=== PATIENT | male | born 1960 | race Caucasian/White ===

== ENCOUNTER → 2024-08-27 08:44 | Outpatient (REF) | payer OTHER, SELFPAY | LOC: HWRAD 08:44 | PROVIDERS: ATTENDING PHYSICIAN Thoracic Surgery (Cardiothoracic Vascular Surgery); FAMILY PHYSICIAN Internal Medicine; REFERRING PHYSICIAN Internal Medicine Cardiovascular Disease | DX: I25.10 Atherosclerotic heart disease of native coronary artery without angina pectoris (principal); Z01.810 Encounter for preprocedural cardiovascular examination | CPT/HCPCS: 71250 ==

== ENCOUNTER 2024-08-28 07:55 | Inpatient (IN) | payer OTHER, SELFPAY ==
[2024-08-23 08:41] VITALS: BMI 35.6
[2024-08-23 09:12] LABS: Urine Albumin 3+ (Neg - Trace); Urine Bilirubin Negative (Negative); Urine Character Clear (Clear); Urine Color Yellow; Urine Glucose 4+ (Negative); Urine Ketone 1+ (Negative); Urine Leukocyte Negative (Negative); Urine Nitrite Negative (Negative); Urine Occult Blood 1+ (Negative); Urine Urobilinogen Negative (Neg - 1+)
[2024-08-23 09:16] LABS: % Basophils 0.6 % (0-2); % Eosinophils 2.3 % (0-6); % Immature Granulocytes 0.4 % (0-0.5); % Lymphocytes 30.2 % (20.5-51.1); % Monocytes 9.7 % (1.7-9.3); % Neutrophils 56.8 % (42.2-75.2); Absolute Basophils 0.1 10^3/uL (0-0.2); Absolute Eosinophils 0.2 10^3/uL (0-0.7); Absolute Lymphocytes 2.5 10^3/uL (1.2-3.4); Absolute Monocytes 0.8 10^3/uL (0.1-0.6); Absolute Neutrophils 4.6 10^3/uL (1.4-6.5); Hematocrit 45.1 % (39.0-52.0); Hemoglobin 15.1 g/dL (13.0-18.0); Mean Corp Hgb Conc. 33.5 g/dL (33.0-37.0); Mean Corpuscular Hgb 27.4 pg (27.0-31.0); Mean Corpuscular Volume 81.9 fL (80.0-94.0); Nucleated Red Blood Cells % 0 % (-); Platelet Count 239 10^3/uL (130-400); Red Blood Cell Count 5.51 10^6/uL (4.70-6.10); Red Cell Dist. Width 13.2 % (11.5-14.5); White Blood Cell Count 8.2 10^3/uL (4.8-10.8)
[2024-08-23 09:22] LABS: PT 12.5 Sec (11.4-14.6)
[2024-08-23 09:23] LABS: APTT 26.3 Sec (23.4-35.0)
[2024-08-23 09:54] LABS: ALT (SGPT) 116 U/L (0-50); AST (SGOT) 51 U/L (17-59); Albumin 4.2 g/dl (3.5-5.0); Alkaline Phosphatase 94 U/L (38-126); Blood Urea Nitrogen 18 mg/dl (9-20); Calcium 9.7 mg/dl (8.4-10.2); Carbon Dioxide 29 mmol/L (22-30); Chloride 98 mmol/L (98-107); Direct Bilirubin 0.2 mg/dl (0.0-0.4); Estimated Creatinine Clearance > 125 ml/min; Glucose 292 mg/dl (70-99); Potassium 4.3 mmol/L (3.5-5.1); Sodium 137 mmol/L (135-145); Total Bilirubin 0.9 mg/dl (0.2-1.3); Total Protein 7.8 g/dl (6.3-8.2); eGFR > 60.00
[2024-08-23 10:09] LABS: Glycohemoglobin (HgbA1c) 9.4 % (4.0-5.6)
--- NOTE | 2024-08-23 10:13 | CM ---
Chart reviewed. Met with the patient in PAT. Reviewed preoperative and postoperative instructions and restrictions, along with showering guidelines. Gave patient 2 soaps. Patient is independent of ADLS, lives with his in a 2 STH, 1 ANTHONY, 0
DME. Patient's works from home. Patient works as a medical/surgery registered nurse. Patient is agreeable to a home visit by CT Transitional RN. Plan is for the patient to return home with CT Transitional RN.
[2024-08-23 12:07] LABS: Urine Mucus Many
[2024-08-23 12:08] LABS: Urine Amorphous Seen
[2024-08-23 12:09] LABS: Urine Red Blood Cell 0-2 /HPF (0-2); Urine White Cell 0-2 /HPF (0-5)
[2024-08-28] VITALS (7 sets, daily range): BP systolic 98–140; BP diastolic 67–95; BMI 34.9
--- NOTE | 2024-08-28 08:00 | PTCARENOTE ---
Patient admitted to CVICU @ 0800. Confirmed 2x CHG shower and NPO since midnight. Vital signs obtained. Clipped and CHG cloth bath performed. Labs drawn. Admission questions asked and home medications reviewed.
--- NOTE | 2024-08-28 11:30 | CM ---
Chart reviewed. Patient is in the OR today. Patient is independent of ADLS, lives with his in a 2 STH, 1 ANTHONY, 0 DME. Plan is for the patient to return home with CT Transitional RN. CM to follow
[2024-08-28] MEDS: MAGNESIUM OXIDE 500 MG PO (11:35)
[2024-08-28] MEDS: LOPRESSOR 25 MG PO (11:35)
[2024-08-28] MEDS: PROTONIX 40 MG PO (11:35)
[2024-08-28] MEDS: BACTROBAN 2% OINTMENT 1 APPLIC NASAL ×2 (11:35→20:41)
--- NOTE | 2024-08-28 12:30 | W.CVOR.SURPR ---
CVOR Surgeon Immed Pre Op
-
I have examined this patient prior to performance of the scheduled procedure.
The patient's condition is unchanged from the time of the dictated/written History and
Physical and the patient is able to undergo the scheduled procedure.
CABG + EHSAN Clip
--- NOTE | 2024-08-28 12:41 | PTCARENOTE ---
Patient taken to CVOR.
--- NOTE | 2024-08-28 12:50 | PN.DE.MGMTRT ---
Insulin Management
- -
08/28/2024 Diabetes Management Consult
Patient admitted today for CABG + EHSAN clip. PMH diabetes, obesity, borderline essential HTN, HLD, colon CA, suspect ASHLY. Prior to admission was taking metformin 1000 mg BID. A1C on admission 9.4, cr .6, eGFR > 60.
Patient is in the OR this AM for procedure.
Patient to start glycemic protocol insulin infusion post operatively. Will follow tomorrow.
Diabetes History
- -
Type of Diabetes: 2
Pre-Admission Diabetes Regimen
Lab Results
Hemoglobin A1c 9.4 % (4.0-5.6) H 08/23/24 08:52
Insulin Pump Settings
IP Diabetes Regimen
Patient Education
[2024-08-28 13:22] LABS: Urine Albumin 2+ (Neg - Trace); Urine Bilirubin Negative (Negative); Urine Character Slightly Cloudy (Clear); Urine Color Yellow; Urine Glucose 3+ (Negative); Urine Ketone 1+ (Negative); Urine Leukocyte Negative (Negative); Urine Nitrite Negative (Negative); Urine Occult Blood 1+ (Negative); Urine Urobilinogen 1+ (Neg - 1+)
[2024-08-28 13:29] LABS: ACT+ - POC 93 Seconds (82-134)
[2024-08-28 14:18] LABS: Urine Bacteria Few (Negative); Urine Squamous Cell >30 /LPF (Few)
[2024-08-28 14:19] LABS: Urine Mucus Few; Urine Red Blood Cell 0-2 /HPF (0-2); Urine Sperm Seen
[2024-08-28 15:12] LABS: ACT+ - POC 460 Seconds (82-134)
[2024-08-28 15:19] LABS: B.E. - POC 0.5 mmol/L; Glucose - POC 256 mg/dl (70-99); HCO3 - POC 25 mmol/L (21-28); Hematocrit - POC 42 % PCV (42-52); Hemodilution- POC No; Hemoglobin Calculated - POC 14.4; Ionized Calcium - POC 1.18 mmol/L (1.15-1.33); Lactate - POC 1.37 mmol/L (0.36-0.75); O2 Saturation %Calculated-POC 99.6 % (94-98); PCO2 - POC 41 mmHg (35-48); PO2 - POC 175 mmHg (83-108); Potassium - POC 3.8 mmol/L (3.5-5.1); Sodium - POC 141 mmol/L (136-145); Specimen Type - POC Arterial
[2024-08-28 15:46] LABS: ACT+ - POC 495 Seconds (82-134)
[2024-08-28 16:13] LABS: B.E. - POC 2.5 mmol/L; Glucose - POC 267 mg/dl (70-99); HCO3 - POC 28 mmol/L (21-28); Hematocrit - POC 34 % PCV (42-52); Hemodilution- POC Yes; Hemoglobin Calculated - POC 11.7; Ionized Calcium - POC 0.99 mmol/L (1.15-1.33); Lactate - POC 1.55 mmol/L (0.36-0.75); O2 Saturation %Calculated-POC 99.7 % (94-98); PCO2 - POC 47 mmHg (35-48); PO2 - POC 200 mmHg (83-108); Potassium - POC 5.6 mmol/L (3.5-5.1); Sodium - POC 137 mmol/L (136-145); Specimen Type - POC Arterial; pH - POC 7.38 (7.35-7.45)
[2024-08-28 16:23] LABS: B.E. - POC -0.5 mmol/L; Glucose - POC 257 mg/dl (70-99); HCO3 - POC 25 mmol/L (21-28); Hematocrit - POC 33 % PCV (42-52); Hemodilution- POC Yes; Hemoglobin Calculated - POC 11.4; Ionized Calcium - POC 1.05 mmol/L (1.15-1.33); Lactate - POC 2.28 mmol/L (0.36-0.75); O2 Saturation %Calculated-POC 97.6 % (94-98); PCO2 - POC 42 mmHg (35-48); PO2 - POC 100 mmHg (83-108); Potassium - POC 4.5 mmol/L (3.5-5.1); Sodium - POC 140 mmol/L (136-145); Specimen Type - POC Arterial; pH - POC 7.38 (7.35-7.45)
[2024-08-28 16:24] LABS: ACT+ - POC 523 Seconds (82-134)
[2024-08-28 16:44] LABS: B.E. - POC 0.5 mmol/L; Glucose - POC 247 mg/dl (70-99); HCO3 - POC 26 mmol/L (21-28); Hematocrit - POC 34 % PCV (42-52); Hemodilution- POC Yes; Hemoglobin Calculated - POC 11.4; Ionized Calcium - POC 1.04 mmol/L (1.15-1.33); Lactate - POC 2.36 mmol/L (0.36-0.75); O2 Saturation %Calculated-POC 97.3 % (94-98); PCO2 - POC 43 mmHg (35-48); PO2 - POC 96 mmHg (83-108); Potassium - POC 4.5 mmol/L (3.5-5.1); Sodium - POC 139 mmol/L (136-145); Specimen Type - POC Arterial; pH - POC 7.38 (7.35-7.45)
[2024-08-28 16:47] LABS: ACT+ - POC 104 Seconds (82-134)
--- NOTE | 2024-08-28 17:14 | W.PN.CT.SURG ---
CT Surgery Operative Note
-
CARDIAC SURGERY OPERATIVE REPORT
Preoperative Diagnosis: Multivessel Coronary Artery Disease with exertional angina
Postoperative Diagnosis: Same
Procedure(s) Performed:
1. Standard sternotomy with aortic and right atrial cannulation
2. Internal mammary artery harvesting
3. Endoscopic left radial and open right lower extremity vein harvest
4. Multi arterial coronary artery bypass grafting x 3 (In situ FAYE to LAD, Ao to left radial to OM, Ao to RSVG to RPDA)
5. Placement of temporary ventricular pacing wire
6. Transesophageal echocardiography
Date of Surgery: 08/28/2024
Comorbidities:
1. Multivessel coronary disease with exertional angina
2. Morbidly obese with a BMI of greater than 30
3. ASHLY on CPAP
4. Hyperlipidemia
5. Njc-plqzshs-exwgfhtcd diabetes mellitus
6. Hypertension
7. History of colon cancer status post colectomy in 2020
Attending Surgeon: Clyde Espinosa MD, MS
Assistants: Clyde Issa PA-C (present and necessary to registered nurse first assistant, retraction, suction, exposure, suture management, and wound closure under my direction), Aurea Hawkins PA-C (endo radial artery harvest), Ricky Jackson MD (Cardiac Surgery Boatswain Mate)
Anesthesiology: Tenzin Willams MD and Renetta Castillo CRNA
Scrub and Circulating RNs: Reyes Lucas RN, Martine Elliott RN
Associate Professor Of Literacy: Nilay Tyler CCP
Anesthesia: GETA
EBL: per perfusion records
Products: None
CPB Time: 79 minutes
Aortic Cross Clamp Time: 67 minutes
Indication(s) for Procedures: This is a 63-year-old male with multiple comorbidities including exertional angina. He underwent left heart cath which found multivessel coronary artery disease. Given his diabetic status, he was offered surgical
revascularization with multi arterial grafting given his young age and disease pattern. The STS risk was reviewed the patient, he accepted the risks and so shared decision making was move forward with operative intervention.
Conduit(s) Quality:
FAYE -excellent/taken as a pedicle graft
RSVG -good/large sized and somewhat thickened but overall uniform with minimal varicosities
Target(s) Quality:
RCA/PDA -average/diffusely calcified throughout the entire RCA, test dose of antegrade yielded excellent flow and flow probe assessment with a mean flow of 20 cc a minute with a pulsatility index of 3.3
OM -good/again, diffusely diseased but large sized target, test dosing of antegrade yielded a flow of approximately 50 cc a minute at a pressure of 80 mmHg, flow probe assessment with a mean flow of 28 mm/min with a pulsatile index of 3.4
LAD -good/mean flow of 14 cc a minute with a pulsatile index of 3.7, good visual flow in the LAD territory with removal of the bulldog clamp
Findings: Left ventricular ejection fraction preoperatively was 60% with no significant regional wall motion abnormalities. There was trace to mild mitral valve insufficiency. Following surgery his EF remained the same at 60% with no new regional
wall motion abnormalities. Initially with clamp off, he had moderate mitral valve insufficiency that was functional then improved to trace/baseline after period of perfusion and recovery. The FAYE was harvested in a pedicle fashion. Following
bypass grafting, test dose cardioplegia was given down each distal and confirmed patency and hemostasis. Flow probe assessment yielded acceptable flows in all grafts with low pulsatility indices. The mid LAD was diffusely diseased all way down
towards the apex, there was eccentric plaque but were able to identify a lumen with good visual flow in the LAD territory. He did not require any blood products, he was in sinus rhythm and did not require any pacing.
Description of Procedure: The patient was taken to the operating room. Their identity and procedure to be performed were verified and they were positioned supine on the operating table. Induction via general anesthesia with endotracheal intubation
was performed and central venous access and arterial monitoring were inserted. A preoperative transesophageal echocardiogram was performed to assess cardiac function and valvular function. The patient was then prepped and draped from chin to feet in
a sterile fashion. A preoperative time-out was performed with all members of the team present. A midline chest incision was performed along with median sternotomy. Simultaneous endoscopic access of the left radial artery and open lower extremity for
saphenous vein harvest was obtained along with administration of an initial 5,000 units of IV heparin. A RulTract sternal retractor was positioned to exposure the left internal mammary bed. The mammary was harvested and found to have good flow. A
bulldog clamp was applied to the distal end of the mammary after dividing it. It was wrapped in a papaverine soaked RayTec and replaced back into the left hemithorax. The RulTract was exchanged for a median sternal retractor. The innominate vein was
isolated. Full heparinization was given (a total of 60,000 units). We created a pericardial well. The aortic cannulation site was chosen where it was soft, pliable, and free of calcium. Cannulation was performed with an arterial cannula in the
ascending aorta and a triple-stage venous cannula through the right atrial appendage. The arterial cannula line had an appropriate bounce and correlating pressures with test dosing. Next, a root vent/antegrade cannula was inserted into the ascending
aorta. The ACT was confirmed to be over 400 and retrograde autologous priming was performed before commencing cardiopulmonary bypass. The pulmonary artery was away from the aorta to facilitate a clamp site. The aortic cross-clamp was
placed after decreasing the flow on the bypass and mean arterial pressure. A total of 1.2L initial dose of antegrade Del-Nido cardioplegia solution was given and planned for re-dosing every 75 minutes as necessary. There was rapid electro-mechanical
arrest of the heart at 300 cc of cardioplegia. Additional cardioplegia (total of 500cc more) was given as there appeared to be activity on the EKG however this was found to be erroneous later and likely artifact. The left ventricle was observed for
distention on echocardiogram and manual palpation. Cold slush was placed into a sponge and topically on the RV while we systemically cooled to 32 degrees centigrade.
I positioned the heart to expose the distal right coronary at the posterior descending artery. A [place] blade was used to expose the coronary and perform the arteriotomy. Coronary Grossman scissors were used to enlarge the incision. The saphenous vein
was trimmed and beveled to an appropriate size. The distal anastomosis was performed using 7-0 prolene in an end-to-side fashion. Antegrade cardioplegia was administered into the graft. Appropriate hemostasis and flow were confirmed. The graft was
measured for length to the aorta and cut. A suitable site on the obtuse marginal was chosen. We dissected and prepared the distal target in a similar fashion. An end-to-side anastomosis was created with a 7-0 prolene. Antegrade cardioplegia was
administered into the graft with the aid of an Angiocath. Appropriate hemostasis and flow were confirmed. The graft was measured for length to the aorta and cut. A suitable target on the mid/distal left anterior descending was identified. I
dissected proximally and distally over the LAD itself was diffusely calcified however I was able to find a suitable spot with eccentric plaque. We dissected and prepared the distal target in a similar fashion. We retrieved the FAYE from the chest
and created a pericardial opening while being cognizant of the phrenic nerve to facilitate the course of the mammary. The distal end of the mammary was prepped and beveled to size. We verified orientation and length of the NOMAN and found brisk flow.
An end-to-side anastomosis was created with a 8-0 prolene and secured with a micro core knot. We temporarily released the bulldog clamp on the mammary to inspect flow. Perfusion to the LAD territory was visualized and hemostasis was confirmed. The
bull clamp was replaced on the mammary. The heart was filled and the root was distended with antegrade cardioplegia to make final assessment of graft length and orientation. We created 2 aortotomies using a #11 blade then a 4.0mm aortic punch. The
proximal anastomoses were created in an end-to-side fashion using 6-0 prolene for the vein graft and 7-0 Prolene for the radial. At the the same time, we re-warmed to 36.5 degrees centigrade. The bulldog clamp was removed from the mammary. Temporary
bipolar ventricular pacing wires were placed on the base of the right ventricle. The patient was placed in a Trendelenburg position and flows on bypass were lowered. The aortic cross clamp was removed and flows were slowly brought back up. All
bypass grafts were inspected and were free from kinking or twisting. The distal and proximal anastomoses appeared hemostatic. Once transesophageal echocardiography appeared satisfactory for de-airing, the flows were temporarily lowered for root
vent removal. After verifying acceptable parameters, we initiated weaning from cardiopulmonary bypass. Once we were off cardiopulmonary bypass, the venous cannula was clamped and removed. A test dose of protamine was administered and the patient was
monitored for any adverse reaction before resuming protamine. Once half of the protamine dose was delivered, pump suckers were turned off and the systolic blood pressure was lowered for aortic decannulation. The aortic cannula was removed and
pursestrings were tied down. All cannulation sites were oversewn with a 4-0 prolene. The mammary bed was inspected and hemostasis was confirmed. Once the mediastinum was hemostatic, 19Fr Tim drain was placed in the left pleural cavity and two 24Fr
Tim drains were placed within the pericardium. The sternum was approximated with 4 #7 single and 3 #8 double stainless steel wires. Fascia was approximated with #1 vicryl suture. The subcutaneous, dermis and epidermis were closed in layers in a
running fashion. The skin wound was cleansed and dressed.
All instrument, sponge, and needle counts were confirmed to be correct x 2 at the end of the operation. The patient was transferred to the cardiac intensive care unit in critical but stable condition.
I, Dr. Clyde Espinosa, was present, scrubbed for, and performed all critical elements of this procedure.
Clyde Espinosa MD, MS
Cardiothoracic Surgeon
[facility]
This operative dictation was created using the Marginize dictation system. Please excuse any grammatical, typographical, or 'sound alike' errors
[2024-08-28 17:26] LABS: B.E. - POC -0.2 mmol/L; Glucose - POC 228 mg/dl (70-99); HCO3 - POC 26 mmol/L (21-28); Hematocrit - POC 32 % PCV (42-52); Hemodilution- POC Yes; Hemoglobin Calculated - POC 10.9; Ionized Calcium - POC 1.26 mmol/L (1.15-1.33); Lactate - POC 2.82 mmol/L (0.36-0.75); O2 Saturation %Calculated-POC 98.8 % (94-98); PCO2 - POC 46 mmHg (35-48); PO2 - POC 131 mmHg (83-108); Potassium - POC 3.8 mmol/L (3.5-5.1); Sodium - POC 142 mmol/L (136-145); Specimen Type - POC Arterial; pH - POC 7.35 (7.35-7.45)
--- NOTE | 2024-08-28 17:30 | PTCARENOTE ---
Pt received from CVOR at 1730. Pt intubated and sedated on precedex gtt. Unresponsive, RAAS -5. PERRLA 3mm brisk. POX 93% SIMV 100% 14 500 5/5, not breathing over the vent. Intubated with 8.0 ETT, 22cm at the lip. Lungs clear anteriorly. NSR with
RBBB on tele with rates in the 70s. BP supported with levophed gtt. Pt received with Nitro infusing, discontinued. +Rub. Right radial, left ulnar pulses palpable. Bilateral DP pulses palpable. No edema noted. CVP 11. Cardizem infusing at 2.5mg/hr
for radial graft. Epicardial v-wire tested by Dr. Espinosa at bedside, with appropriate pacing. Set to 70/10/0.8, wire unplugged from box as per Dr. Espinosa. Mediastinal chest tubes x2 to -20cm suction draining red fluid. Left pleural chest tube to -20cm
suction draining red fluid. No air leaks, tidaling, crepitus noted. Abdomen soft, round, obese. Hypoactive BS. Pham catheter intact draining adequate amounts of clear yellow urine. Right IJ cordis with slick in place. Right forearm 18g PIV intact.
Sternal incision approximated with skin glue, HEADING MACHINE OPERATOR. Left radial harvest/wrist incision covered with JUNAID-CDI. Right leg SVG harvest incisions covered with JUNAID-CDI. See MAR for medication administration. See worklist for complete nursing assessment.
Post op EKG, CXR, and labs completed.
[2024-08-28 17:43] LABS: Glucose - Point of Care 210 mg/dl (70-99)
[2024-08-28 17:46] LABS: B.E. - POC -1.9 mmol/L; Blood Urea Nitrogen - POC 18 mg/dl (3-120); Chloride - POC 101 mmol/L (96-111); Creatinine - POC 0.65 mg/dl (0.3-1.0); Glucose - POC 224 mg/dl (70-99); HCO3 - POC 26 mmol/L (21-28); Hematocrit - POC 34 % PCV (42-52); Hemodilution- POC No; Hemoglobin Calculated - POC 11.6; Ionized Calcium - POC 1.18 mmol/L (1.15-1.33); Lactate - POC 2.94 mmol/L (0.36-0.75); O2 Saturation %Calculated-POC 92.2 % (94-98); PCO2 - POC 56 mmHg (35-48); PO2 - POC 74 mmHg (83-108); Potassium - POC 3.7 mmol/L (3.5-5.1); Sodium - POC 142 mmol/L (136-145); Specimen Type - POC Arterial; pH - POC 7.27 (7.35-7.45)
--- NOTE | 2024-08-28 17:50 | CON.INTV ---
Consultation
Consultation Request
Date/Time Consultation Requested: 08/28/2024 - 170
Date/Time Consultation Performed: 08/28/2024 - 1727
Requesting Provider: CHIRAG Hale
Performing Provider: Dr. Lang
Reason for Consultation: s/p CABG
Medical History
-
Chief Complaint: Elective CABG
History of Present Illness:
63-year-old male non-smoker with a past medical history of DM type II, hypertension, hyperlipidemia, history of colon cancer s/p partial colectomy and multivessel CAD. Patient underwent a left heart catheterization on 08/15/2024 showing subtotal mid
RCA lesion with mild as moderate diffuse disease of the RCA, severe proximal circumflex disease, concomitant ostial OM 2 disease and showed moderate�severe proximal to mid LAD disease. Stress test on 08/02/2024 was positive for ischemia. He
endorsed shortness of breath and central chest tightness. Patient saw Dr. Espinosa on 08/21/2024 and reviewed the risks and benefits of a surgical revascularization procedure. Patient consented to this procedure and today he underwent a CABG x 3. There
were no complications and he was transferred to the CVICU postoperatively and Rigging Supervisor services consulted for additional management/recommendations.
When I saw the patient he was resting in bed, still intubated on SIMV at 18/500/100%/8, with PSV: 5, with PIP: 28 cmH2O, VTe 485 cc and breathing at 18 breaths/min. Heart rate 75, SpO2: 94%, and BP via A-line: 104/59. Currently on insulin drip at
2 units/hr, nitroglycerin gtt at 5 mcg/min, Precedex at 0.5 mcg/kg/hr, Cardizem at 2.5 mg/hr, and Levophed at 6 mcg/min.
PMHx: DM type II, history of enlarged RV, hypertension, hyperlipidemia, history of colon cancer, ASHLY on CPAP
PSHx: Partial colectomy for colon cancer (2020)
Past Medical History
Past Medical History: Other (Above as per HPI)
Past Surgical History: Other (Above as per HPI)
Social History
Tobacco: Non-smoker
Alcohol: Occasional
Drug: None
Personal: Partner
Employment: Employed (Medical and legal hunter trapper)
Family History
Family History: CAD (Father) and Hypertension (Mother)
Allergies / Home Medications
Allergies
Allergy/AdvReac Type Severity Reaction Status Date / Time
No Known Allergies Allergy Verified 08/22/24 10:25
Home Medications
�Medication �Instructions �Recorded �Confirmed �Last Taken �Type
aspirin 81 mg tablet,delayed 81 mg PO DAILY Blood Clot 08/22/24 08/28/24 08/19/24 21:00 History
release Prevention/Tx
atorvastatin 40 mg tablet 40 mg PO DAILY High Cholesterol 08/22/24 08/28/24 08/27/24 09:00 History
metformin 1,000 mg tablet 1,000 mg PO BID Diabetes 08/22/24 08/28/24 08/27/24 09:00 History
metoprolol succinate 50 mg 50 mg PO DAILY Heart 08/22/24 08/28/24 08/27/24 09:00 History
tablet,extended release 24 hr Disease/Condition
Review of Systems
-
Unable to Obtain full review of systems at this time due to: Patient Intubation
Vitals / Labs / Diagnostic Testing
Vital Signs
Temp Pulse Resp BP Pulse Ox
98.4 F 76 6 114/77 97
08/28/24 20:00 08/28/24 20:05 08/28/24 20:05 08/28/24 20:00 08/28/24 20:05
Lab Data
08/28/24 17:40
Laboratory Results
08/28/24 08/28/24
17:40 18:35
PT 16.6 H
INR 1.29
APTT 29.1
pH 7.29 L 7.35
pCO2 52 H 44
pO2 79 L 153 H
HCO3 25.0 24.3
O2 Delivery Level
Diagnostic Testing:
Physical Exam
-
HEENT: Normocephalic, Anicteric and Other (ETT in place)
Cardiovascular: S1/S2, Rub (present) and Peripheral Edema (negative)
Respiratory: Clear, Wheeze (negative), Rales (negative), Rhonchi (negative), Non-Labored Respirations, Other (Mechanical breath sounds heard bilaterally) and Other (Chest tubes: Left pleural chest tube x 1 + mediastinal chest tubes x 2)
GI: Soft, Non Distended, Non Tender and Normal Bowel Sounds
Neurology: Tremors (negative) and Other (Sedated)
Skin: Warm and Dry
General: Respiratory Distress (negative), Comfortable, Fever (negative) and Chills (negative)
Assessment
-
Assessment: 63-year-old male non-smoker with a past medical history of DM type II, hypertension, hyperlipidemia, history of colon cancer s/p partial colectomy and multivessel CAD. Patient underwent a left heart catheterization on 08/15/2024 showing
subtotal mid RCA lesion with mild as moderate diffuse disease of the RCA, severe proximal circumflex disease, concomitant ostial OM 2 disease and showed moderate�severe proximal to mid LAD disease. Stress test on 08/02/2024 was positive for
ischemia. He endorsed shortness of breath and central chest tightness. Patient saw Dr. Espinosa on 08/21/2024 and reviewed the risks and benefits of a surgical revascularization procedure. Patient consented to this procedure and on 08/28/2024 he
underwent a CABG x 3. There were no complications and he was transferred to the CVICU postoperatively and Rigging Supervisor services consulted for additional management/recommendations.
Chronic conditions NOTE TELLER: DM type II, history of enlarged RV, hypertension, hyperlipidemia, history of colon cancer, ASHLY on CPAP
Impression:
#Multivessel CAD with exertional angina s/p CABG x 3 (POD #0)
#Acute anemia due to above
#Hyponatremia (mild)
#DM type II complicated by hyperglycemia
#Hypocalcemia
#ASHLY on CPAP
#Hyperlipidemia
#Morbid obesity
#Hypertension
#History of colon cancer s/p partial colectomy (2020)
Plan:
Ventilator settings reviewed
FiO2 will be weaned to maintain SpO2 >90-94%
Minute ventilation will be adjusted
Arterial blood gases will be monitored
Spontaneous breathing trial will be attempted with hopeful extubation after anesthesia/sedation wear off
prn nebulized bronchodilators - not currently bronchospastic
Pulmonary artery catheter parameters will be followed
Pressors/antihypertensive/inotropes/diuretics will be provided as needed
Maintain MAP>65
Replete electrolytes with K>4, Mg>2
Monitor chest tube output (left pleural chest tube X 1 + mediastinal chest tubes x 2)
Monitor hemoglobin
Monitor platelet count and coags
Transfuse blood products as needed to maintain Hb>7g/dL, plt>50k (given post-operative status)
CT surgery managing chest tubes
Monitor blood sugar to maintain euglycemia with goal BG 140-180
Insulin drip per protocol
Aspiration precautions
VAP prevention protocol
DVT prophylaxis
Early nutrition
Early mobilization
Critical care statement: A total of 37 minutes of critical care time was provided for this patient today. This includes management of ventilator, spontaneous breathing trial, arterial blood gases, pressors, of unstable vital signs, evaluation of the
patient at bedside, reviewing the patient's pertinent medical records including radiographs, microbiology, laboratory evaluations, and discussion with primary team and critical care nursing.
[2024-08-28 17:55] LABS: Hematocrit 34.3 % (39.0-52.0); Hemoglobin 11.5 g/dL (13.0-18.0); Platelet Count 191 10^3/uL (130-400)
[2024-08-28 17:57] LABS: B.E. -2.1 mmol/L; Ionized Calcium 1.18 mMOL/L (1.15-1.33); O2 Saturation % 96.5 % (94-98); PCO2 52 mmHg (35-48); PO2 79 mmHg (83-108); Potassium 3.9 mMOL/L (3.5-5.1); Sodium 135 mMOL/L (136-145); pH 7.29 (7.35-7.45)
--- NOTE | 2024-08-28 18:00 | PTCARENOTE ---
Post-op ABG resulted, Dr. Espinosa at bedside to change vent settings SIMV 100% 18 500 03/23. Repeat ABG scheduled for 1829. POX 96%.
[2024-08-28 18:01] LABS: Blood Urea Nitrogen 18 mg/dl (9-20); Estimated Creatinine Clearance > 125 ml/min; Glucose 218 mg/dl (70-99); Magnesium 2.9 mg/dl (1.6-2.3)
[2024-08-28 18:03] LABS: INR 1.29; PT 16.6 Sec (11.4-14.6)
[2024-08-28 18:04] LABS: APTT 29.1 Sec (23.4-35.0)
[2024-08-28] MEDS: KCL 50 IV ×2 (18:09→19:20)
[2024-08-28] MEDS: ANCEF 10 IV ×2 (18:10)
[2024-08-28] MEDS: CARDIZEM 125 IV (18:11)
[2024-08-28] MEDS: NOVOLOG FLEXPEN SC (18:12)
[2024-08-28] MEDS: NEURONTIN PO ×2 (18:12→22:33)
[2024-08-28] MEDS: PACERONE PO ×2 (18:13→22:33)
[2024-08-28] MEDS: TYLENOL PO ×2 (18:13→22:33)
[2024-08-28] MEDS: NSS 500 IV (18:13)
--- NOTE | 2024-08-28 18:13 | W.PN.UPDATE ---
Addendum entered and electronically signed by CHIRAG Hale 09/04/24 16:08:
CDI QUERY RESPONSE :
AB.29/52/79/25/-2.1/96% c/w acute post op resp acidosis
Original Note:
Update Note
Progress Note Update
63-year-old male was electively admitted on 08/28/2024 for CABG
IV fluids: 2300
U.O.:� 325
Blood:� none
Wires:� v-wires
Drips: Cardene @ 5, levo @ 4, Insulin @ 2
Sedatives:� Precedex
�
NEURO: sedated, pupils +2mm B/L
RESP: #8OT @24cm> 500/100%/14/5. Lungs clear B/L. 2 mediastinal (10cc on arrival) and L pleural (10cc on arrival) chest tubes to -20cm suction. Sanguineous drainage, no airleak, no crepitus
CV: RRR +S1, S2, no S3, no�rub, no murmur. Dermabond to median sternotomy. RIJ w/slik
ABD: large, round, soft, no BS
EXT: no edema, +2/4 DP pulses B/L, no femoral bruit, RLE JUNAID wrap intact; left radial A-line intact
: Pham with clear yellow urine
�
A/P: POD #0 s/p CABG x 3 (FAYE to LAD, left radial to OM, RSVG to RPDA)
ARISTIDES: EF�65-70%
- wean and extubate
- keep SBP 90-130mmHg
# CAD
- will require ASA, Plavix, statin, beta-janette and Norvasc x 3 months for radial patency
# Acute postop respiratory acidosis on 100% FiO2
-PEEP increased to 10, RR increased to 18
-ET tube in adequate position on chest x-ray review
-Repeat ABG at 1830
�
# acute surgical blood loss anemia-expected
- trend CBC
�
# T2DM (A1C 9.4)
- insulin infusion x 48h
- on MFM 100mg BID @ home>diabetes INSPECTOR CAN[employer]ED FOOD RECONDITIONING consulted for recommendations to improve glycemic control
�
# Hx colon C/A s/p partial colectomy 2020
- slow advance of diet to prevent ileus
# Class I obesity (BMI 34)
-Carb controlled diabetic diet
-Lifestyle modification with increased exercise
--- NOTE | 2024-08-28 18:43 | W.PN.UPDATE ---
Update Note
Progress Note Update
EPOC ABG (PEEP 10/FiO2 100%):
7.34/42.8/122.1/23.2/-2.5/98.5%
[2024-08-28 18:46] LABS: B.E. - POC -2.5 mmol/L; Blood Urea Nitrogen - POC 17 mg/dl (3-120); Chloride - POC 104 mmol/L (96-111); Creatinine - POC 0.61 mg/dl (0.3-1.0); Glucose - POC 287 mg/dl (70-99); HCO3 - POC 23 mmol/L (21-28); Hematocrit - POC 36 % PCV (42-52); Hemodilution- POC No; Hemoglobin Calculated - POC 12.4; Ionized Calcium - POC 1.08 mmol/L (1.15-1.33); Lactate - POC 1.98 mmol/L (0.36-0.75); O2 Saturation %Calculated-POC 98.5 % (94-98); PCO2 - POC 43 mmHg (35-48); PO2 - POC 122 mmHg (83-108); Potassium - POC 4.1 mmol/L (3.5-5.1); Sodium - POC 140 mmol/L (136-145); Specimen Type - POC Arterial; pH - POC 7.34 (7.35-7.45)
[2024-08-28 18:56] LABS: B.E. -1.5 mmol/L; HCO3 24.3 mmol/L (21-28); O2 Saturation % 99.3 % (94-98); PCO2 44 mmHg (35-48); PO2 153 mmHg (83-108); pH 7.35 (7.35-7.45)
--- NOTE | 2024-08-28 19:00 | PTCARENOTE ---
Repeat ABG resulted, per CT AUDIOLOGIST, decrease fio2 to 60%, RT notified and at bedside to decrease Fio2, POX 97%, pt tolerating.
[2024-08-28 19:11] LABS: Glucose - Point of Care 220 mg/dl (70-99)
--- NOTE | 2024-08-28 19:30 | PTCARENOTE ---
Received pt from [facility]. pt is S/P CABGx3 with Dr. Espinosa. Pt is still intubated and sedated at time of handoff. NSR on monitor, VSS. Heart sounds audible, rub present, right radial, left ulnar, b/l dp palpable, no edema noted, temp epicardial wires
present and detached from pacer box, pacer box set to 70/10/0.5. lung clear, diminished at bases, intubated with 8.0 ETT, 22cm at lip, right side of mouth, vent set to RR 18, TV 500, Fio2 60%, PEEP 10, x2 MS and x1 left pleural CT to -20 wall
suction, no air leaks, tidaling, no crepitus. hypoactive BS x4 quadrants, abdomen soft, round/obese. pt voiding clear yellow urine vial deleon catheter. surgical sites maintained. right IJ/[place], right radial A-line, and PIV all maintained, leveled,
and zeroed. levophed, Cardizem, precedex, and insulin infusing. will continue to monitor.
[2024-08-28 20:02] LABS: B.E. - POC -2.5 mmol/L; Blood Urea Nitrogen - POC 17 mg/dl (3-120); Chloride - POC 110 mmol/L (96-111); Creatinine - POC 0.61 mg/dl (0.3-1.0); Glucose - POC 237 mg/dl (70-99); HCO3 - POC 23 mmol/L (21-28); Hematocrit - POC 37 % PCV (42-52); Hemodilution- POC No; Hemoglobin Calculated - POC 12.4; Ionized Calcium - POC 1.12 mmol/L (1.15-1.33); Lactate - POC 1.97 mmol/L (0.36-0.75); O2 Saturation %Calculated-POC 98.6 % (94-98); PCO2 - POC 42 mmHg (35-48); PO2 - POC 124 mmHg (83-108); Potassium - POC 4.5 mmol/L (3.5-5.1); Sodium - POC 141 mmol/L (136-145); Specimen Type - POC Arterial; pH - POC 7.35 (7.35-7.45)
[2024-08-28 20:07] LABS: Glucose - Point of Care 209 mg/dl (70-99)
[2024-08-28] MEDS: CALCIUM GLUCONATE 100 IV (20:17)
[2024-08-28] MEDS: SENOKOT-S PO (20:17)
[2024-08-28 20:29] LABS: B.E. -0.8 mmol/L; HCO3 24.3 mmol/L (21-28); Ionized Calcium 1.13 mMOL/L (1.15-1.33); O2 Saturation % 98.8 % (94-98); PCO2 41 mmHg (35-48); PO2 106 mmHg (83-108); Potassium 4.8 mMOL/L (3.5-5.1); pH 7.38 (7.35-7.45)
[2024-08-28 21:02] LABS: Glucose - Point of Care 200 mg/dl (70-99)
--- NOTE | 2024-08-28 21:15 | PTCARENOTE ---
Fio2 changed from 50% to 40 %. ABG drawn at 2029. CVPA turned PEEP down from 10 to 5 base on ABG results, see labs. Calcium gluconate IVBP administered. awaiting next abg drawn to assess if pt is appropriate for CPAP setting. Pt responds to voice
and follows commands.
[2024-08-28] MEDS: OFIRMEV 100 IV (21:35)
[2024-08-28 21:38] LABS: HCO3 23.1 mmol/L (21-28); O2 Saturation % 97.9 % (94-98); PCO2 40 mmHg (35-48); PO2 89 mmHg (83-108); pH 7.37 (7.35-7.45)
[2024-08-28 21:41] LABS: Hematocrit 37.3 % (39.0-52.0); Hemoglobin 12.7 g/dL (13.0-18.0); Platelet Count 215 10^3/uL (130-400)
[2024-08-28 21:57] LABS: Glucose - Point of Care 181 mg/dl (70-99)
[2024-08-28] MEDS: ASPIRIN 300 MG RECTAL (22:04)
[2024-08-28 23:10] LABS: Glucose - Point of Care 149 mg/dl (70-99)
[2024-08-28 23:12] LABS: B.E. -0.5 mmol/L; HCO3 24.2 mmol/L (21-28); Ionized Calcium 1.23 mMOL/L (1.15-1.33); O2 Saturation % 98.6 % (94-98); PCO2 39 mmHg (35-48); PO2 103 mmHg (83-108); Potassium 4.3 mMOL/L (3.5-5.1); Sodium 135 mMOL/L (136-145)
[2024-08-28] MEDS: DILAUDID 0.5 MG IV (23:38)
[2024-08-28] MEDS: ANCEF 5 IV (23:39)
[2024-08-28] MEDS: NOVOLIN R INSULIN INFUSION 100 IV (23:45)
[2024-08-28 23:57] LABS: Glucose - Point of Care 133 mg/dl (70-99)
[2024-08-29] VITALS (30 sets, daily range): BP systolic 95–139; BP diastolic 67–94; PULSE 82; O2SAT 96–100; BMI 35.8
--- NOTE | 2024-08-29 | PTCARENOTE ---
Pt CPAPed at 2229 and extubated at 2324 to 6LNC, pt is AAOx4. pt stated pain is 8/10, see MAR for details. pt cleaned with CHG wipes, deleon care provided. rectal aspirin given before extubation at 2214. will continue to monitor.
[2024-08-29 00:57] LABS: Glucose - Point of Care 125 mg/dl (70-99)
[2024-08-29] MEDS: LR 250 ML IV (01:00)
[2024-08-29] MEDS: TORADOL 15 MG IV (01:02)
[2024-08-29 02:01] LABS: Glucose - Point of Care 121 mg/dl (70-99)
[2024-08-29] MEDS: ROXICODONE 5 MG PO ×5 (02:11→22:03)
[2024-08-29 03:05] LABS: Glucose - Point of Care 99 mg/dl (70-99)
[2024-08-29 03:05] LABS: Glucose - Point of Care 36 mg/dl (70-99)
[2024-08-29 03:26] LABS: Hematocrit 36.2 % (39.0-52.0); Hemoglobin 12.3 g/dL (13.0-18.0); Mean Corpuscular Volume 82.5 fL (80.0-94.0); Mean Platelet Volume 10.1 fL (7.4-10.4); Platelet Count 213 10^3/uL (130-400); Red Blood Cell Count 4.39 10^6/uL (4.70-6.10); Red Cell Dist. Width 13.2 % (11.5-14.5); White Blood Cell Count 18.2 10^3/uL (4.8-10.8)
[2024-08-29] MEDS: DILAUDID 0.25 MG IV (03:31)
[2024-08-29 03:47] LABS: Blood Urea Nitrogen 21 mg/dl (9-20); Calcium 8.8 mg/dl (8.4-10.2); Carbon Dioxide 23 mmol/L (22-30); Chloride 107 mmol/L (98-107); Estimated Creatinine Clearance > 125 ml/min; Glucose 105 mg/dl (70-99); Magnesium 2.3 mg/dl (1.6-2.3); Potassium 4.2 mmol/L (3.5-5.1); Sodium 138 mmol/L (135-145); eGFR > 60.00
--- NOTE | 2024-08-29 04:00 | PTCARENOTE ---
on going pain management, see AUG. NSR on monitor. VSS. labs drawn and sent. levophed weaned off. awaiting orders to deline.
[2024-08-29 04:58] LABS: Glucose - Point of Care 115 mg/dl (70-99)
--- NOTE | 2024-08-29 04:59 | W.PN.CT ---
Today's Communication / Plan
-
-pod #1
-extubated uneventfully @ 11:25 pm
-drips: Cardizem 2.5 for radial graft, Levo 1, Insulin
-CT outputs: 2 meds 175/190, L pleur 15/25 in 12/24 hrs
-got 500 LR
-deline
-continue insulin
-d/c Pham
-transition from iv Cardizem to Norvasc for radial graft (ordered)
-current meds (ASA, Plavix, Lipitor, Lopressor, Norvasc, Amio, Protonix)
-encourage IS, OOB
Assessment / Plan
-
- Multivessel Coronary Artery Disease with exertional angina- s/p CABG x3 (In situ FAYE to LAD, Ao to left radial to OM, Ao to RSVG to RPDA) by Dr. Espinosa on 08/28/24, pod #1
- Intraop ARISTIDES: LVEF preop and postop was 60% with no significant regional wma. There was trace to mild mitral valve insufficiency. Initially with clamp off, he had moderate mitral valve insufficiency that was functional then improved to
trace/baseline after period of perfusion and recovery.
- HTN/HLD
- Class 2 obesity (BMI 35)
- ASHLY, on CPAP
- Faq-vjxmmkf-ddsbokrzr diabetes mellitus (HgA1C 9.4)
- History of colon cancer, status post colectomy in 2020
- Acute postop blood loss anemia - stable, no transfusion
- Acute postop atelectasis
- Acute postop hypovolemia with subsequent hypervolemia
Discussed patient care with: Nursing and Care Team
Subjective
-
Date of Service: August 29, 2024
Objective Data
-
PT 16.6 Sec (11.4-14.6) H 08/28/24 17:40
INR 1.29 08/28/24 17:40
APTT 29.1 Sec (23.4-35.0) 08/28/24 17:40
Vital Signs
Vital Signs
Temp Pulse Resp BP Pulse Ox
99.5 F 89 24 106/76 93
08/29/24 02:00 08/29/24 02:20 08/29/24 02:20 08/29/24 02:00 08/29/24 02:15
CT Intake/Output/Weight
08/28/24 08/28/24 08/29/24
06:59 18:59 06:59
Intake Total 117.3 / 519.5 402.2 / 519.5
Output Total 130 / 825 695 / 825
Balance -12.7 / -305.5 -292.8 / -305.5
SaO2: 93
Physical Exam
-
General: Awake and AOx3
Cardiovascular: Regular rate & rhythm, No Murmurs and No Rub
Respiratory: Decreased Breath Sounds
Sternum: Stable
Incision: Clean, Dry and Intact
Extremities: No Edema (1+DPs)
Abdomen: soft, nontender, nondistended, + decreased bowel sounds
Data Reviewed
-
Lab Results: Results Reviewed
Medications: Active Meds Reviewed
Chest X-Ray: Report Reviewed and Image Reviewed
ECG: Report Reviewed and Image Reviewed
--- NOTE | 2024-08-29 06:15 | PTCARENOTE ---
Pt delined and OOB to chair. pt tolerated transfer well. call gross within reach. will continue to monitor.
[2024-08-29] MEDS: TYLENOL 1000 MG PO ×3 (06:19→21:35)
[2024-08-29 07:11] LABS: Glucose - Point of Care 105 mg/dl (70-99)
--- NOTE | 2024-08-29 08:07 | W.PN.CD ---
Today's Communication / Plan
-
cont. routine post op care
Impression / Plan
-
Mr. Wright is a 63 year old man with exertional angina found to have multivessel CAD now s/p CABGx3 08/28/24 (FAYE-LAD, LR-OM, RSVG-RPDA; Espinosa). He is doing well post-operatively, extubated POD0.
Events:
overnight extubated
got 500 LR
current meds: ASA, Plavix, Lipitor, Lopressor, Norvasc, Amio, Protonix
off levo
chest tubes in place
tele NSR
Assessment and Plan:
CAD s/p CABG
-cont. asa/statin, eventual goal LDL<55
-cont. lopressor, transition to long acting on discharge
-norvasc per CTS radial protection
-amio per CTS for post-op afib prevention
Diabetes
-A1c 9.4
-cont. insulin
-consult endocrine for further management
HTN
-currently normotensive
Class 2 obesity (BMI 35): good candidate for GLP1ra as outpatient given CAD and DM
ASHLY, on CPAP
History of colon cancer, status post colectomy in 2020
Studies:
EKG - sinus with inferior infarct
Intraop ARISTIDES: LVEF preop and postop was 60% with no significant regional wma. There was trace to mild mitral valve insufficiency. Initially with clamp off, he had moderate mitral valve insufficiency that was functional then improved to
trace/baseline after period of perfusion and recovery.
Physical Exam
Vital Signs/Labs
Vital Signs
Temp Pulse Resp BP Pulse Ox
37.4 C 99 20 115/94 93
08/29/24 06:00 08/29/24 07:10 08/29/24 07:00 08/29/24 07:00 08/29/24 07:00
08/28/24 08/29/24 08/30/24
06:59 06:59 06:59
Actual Weight 106.9 kg
08/29/24 03:02
08/29/24 03:02
PT 16.6 Sec (11.4-14.6) H 08/28/24 17:40
INR 1.29 08/28/24 17:40
APTT 29.1 Sec (23.4-35.0) 08/28/24 17:40
Magnesium 2.3 mg/dl (1.6-2.3) 08/29/24 03:02
Physical Exam
Constitutional: No acute distress
Cardiovascular: Rhythm & rate is regular
Respiratory: Respiratory effort normal
Neuro/Psych: AO x 3
Data Reviewed
-
Date of Service: August 29, 2024
EKG: Tracing Personally Visualized and interpreted
Echo: Report Reviewed by me
X-Ray/CT/US/MRI/NUC/PET: Report Reviewed by me
Labs: Labs Reviewed by me
--- NOTE | 2024-08-29 08:22 | W.PN.INTV ---
Today's Communication / Plan
Recommendations
Up OOB as tolerated
Removal of R�IJ cordis + mediastinal chest tubes x [address] surgery team
Pain control
Wean down supplemental O2 flow rate while keeping SpO2 >90-94%
Patient has ASHLY and is on CPAP - resume CPAP with sleep (need to confirm patient settings)
Continue insulin drip until tomorrow with goal BG 110�140
Cardiac rehab consult
Continue CVICU level care as patient remains on insulin drip until tomorrow. Once downgraded to CVICU�telemetry status, Port Traffic Manager services will sign off at that time.
Assessment
-
Assessment: 63-year-old male non-smoker with a past medical history of DM type II, hypertension, hyperlipidemia, history of colon cancer s/p partial colectomy and multivessel CAD. Patient underwent a left heart catheterization on 08/15/2024 showing
subtotal mid RCA lesion with mild as moderate diffuse disease of the RCA, severe proximal circumflex disease, concomitant ostial OM 2 disease and showed moderate�severe proximal to mid LAD disease. Stress test on 08/02/2024 was positive for
ischemia. He endorsed shortness of breath and central chest tightness. Patient saw Dr. Espinosa on 08/21/2024 and reviewed the risks and benefits of a surgical revascularization procedure. Patient consented to this procedure and on 08/28/2024 he
underwent a CABG x 3. There were no complications and he was transferred to the CVICU postoperatively and Port Traffic Manager services consulted for additional management/recommendations.
Chronic conditions [employer]PER[employer]: DM type II, history of enlarged RV, hypertension, hyperlipidemia, history of colon cancer, ASHLY on CPAP
Impression:
#Multivessel CAD with exertional angina s/p CABG x 3 (POD #1)
#Acute anemia due to above
#Hyponatremia - resolved
#DM type II complicated by hyperglycemia
#Hypocalcemia - resolved
#ASHLY on CPAP
#Hyperlipidemia
#Morbid obesity
#Hypertension
#History of colon cancer s/p partial colectomy (2020)
Plan:
Patient successfully extubated at midnight on 08/29/2024, and is currently on 4 L/min nasal cannula, breathing comfortably and saturating 95-96%
Wean down supplemental O2 to maintain SpO2 >90-94%
prn nebulized bronchodilators - not currently bronchospastic
Encourage incentive spirometer use q1hr while awake
Pressors/antihypertensive/inotropes/diuretics will be provided as needed
Maintain MAP>65
Replete electrolytes with K>4, Mg>2
Monitor chest tube output (left pleural chest tube X 1 ---> to be DC'd today; mediastinal chest tubes x 2)
Monitor hemoglobin
Monitor platelet count and coags
Transfuse blood products as needed to maintain Hb>7g/dL, plt>50k (given post-operative status)
CT surgery managing chest tubes
Monitor blood sugar to maintain euglycemia with goal BG 110-140
Insulin drip per protocol
Aspiration precautions
DVT prophylaxis
Early nutrition
Early mobilization
Continue CVICU level care as patient remains on insulin drip until tomorrow. Once downgraded to CVICU�telemetry status, Port Traffic Manager services will sign off at that time.
Critical care statement: A total of 43 minutes of critical care time was provided for this patient today. This includes management of ventilator, spontaneous breathing trial, arterial blood gases, pressors, of unstable vital signs, evaluation of the
patient at bedside, reviewing the patient's pertinent medical records including radiographs, microbiology, laboratory evaluations, and discussion with primary team and critical care nursing.
Subjective Dataa
Subjective Data
Date of Service:
Date of Service: August 29, 2024
Chief Complaint: Port Traffic Manager Follow Up
Subjective:
Patient was seen and evaluated today at bedside. Remains on insulin drip at 14 units/hr. Patient denies shortness of breath or chest pain. Currently on 4 L/min nasal cannula saturating 96%, heart rate 92 and BP 129/89.
Review of Systems
General: Other (Negative unless mentioned above)
Objective Data
Data Reviewed
Vital Signs / I&O / Oxygen:
Vital Signs
Temp Pulse Resp BP Pulse Ox
98.6 F 91 18 107/69 93
08/29/24 08:00 08/29/24 09:00 08/29/24 09:00 08/29/24 09:00 08/29/24 09:00
Intake and Output
08/28/24 08/29/24 08/30/24
06:59 06:59 06:59
Intake Total 624.8 / 643.3 53.0 / 53.0
Output Total 1015 / 1025 35 / 35
Balance -390.2 / -381.7 18.0 / 18.0
SaO2 [CPAP] 96
SaO2 [SIMV] 98
SaO2 93
Nasal Cannula flow liters per 4
minute
Physical Exam
General: Respiratory Distress (negative), Comfortable, Chills (negative) and Sweats (negative)
HEENT: Normocephalic, Anicteric and Other (R-IJ cordis in place; thick neck)
Cardiovascular: S1-S2 and Peripheral Edema (negative)
Respiratory: Clear, Wheeze (negative), Crackles (negative), Rhonchi (negative), Non-Labored Respirations and Chest Tube (Mediastinal chest tubes x 2)
GI: Soft, Distended (Abdominal obesity), Non Tender and Normal Bowel Sounds
Neurology: AO x 3 and Tremors (negative)
Skin: Warm, Dry, Cyanosis (negative) and Jaundice (negative)
Labs/Micro/Reports
Lab Data
08/29/24 03:02
08/29/24 03:02
Laboratory Results
08/28/24 08/28/24 08/28/24
17:40 18:35 20:23
PT 16.6 H
INR 1.29
APTT 29.1
pH 7.29 L 7.35 7.38
pCO2 52 H 44 41
pO2 79 L 153 H 106
HCO3 25.0 24.3 24.3
O2 Delivery Level
08/28/24 08/28/24
21:31 23:04
PT
INR
APTT
pH 7.37 7.40
pCO2 40 39
pO2 89 103
HCO3 23.1 24.2
O2 Delivery Level 40% fio2
--- NOTE | 2024-08-29 08:23 | PN.DE.MGMTRT ---
Insulin Management
- -
08/29/2024 Diabetes Management Consult Follow up
Patient elective admission 08/28 for CABG + EHSAN clip. PMH diabetes, obesity, borderline essential HTN, HLD, colon CA, suspect ASHLY. Prior to admission was taking metformin 1000 mg BID and Ozempic 1 mg weekly on Monday. A1C on admission 9.4, cr .6,
eGFR > 60.
POD 1 s/p CABG x 3. Patient is awake alert and oriented able to discuss diabetes care. States he has had diabetes 1 year, sees endo for ongoing diabetes care. States he has a working glucose monitor and supplies. Was only testing daily.
Discussed importance of glucose control and adding farxiga 10 mg daily, he is agreeable.
Will continue glycemic protocol insulin infusion post operatively.
Will follow for readiness to transition to metformin and SGLT2.
Discussed with nurse
Will follow
Diabetes History
- -
Type of Diabetes: 2
Pre-Admission Diabetes Regimen
08/28/24 08/29/24
17:40 03:02
Creatinine 0.6 L 0.6 L
Lab Results
Hemoglobin A1c 9.4 % (4.0-5.6) H 08/23/24 08:52
Insulin Pump Settings
IP Diabetes Regimen
08/28/24 08/28/24 08/28/24
17:40 17:41 19:08
Glucose 218 H
POC Glucose 210 H 220 H
08/28/24 08/28/24 08/28/24
20:05 21:00 21:55
Glucose
POC Glucose 209 H 200 H 181 H
08/28/24 08/28/24 08/29/24
23:04 23:56 00:56
Glucose
POC Glucose 149 H 133 H 125 H
08/29/24 08/29/24 08/29/24
01:59 03:01 03:02
Glucose 105 H
POC Glucose 121 H 36 L*
08/29/24 08/29/24 08/29/24
03:04 04:57 07:10
Glucose
POC Glucose 99 115 H 105 H
Patient Education
--- NOTE | 2024-08-29 08:30 | PTCARENOTE ---
Resumed care of patient. Walking rounds completed with previous RN. Pt assessed while he was sitting in the chair. Pt alert and oriented x4. Rates sternal pain 4/10. Denies shortness of breath, and nausea. BRENNAN with equal strength throughout. NSR on
tele with rates in the 90s. BP 108/73. Heart tones distant. Epicardial v-wire tied to temp box, no pacing. Right radial, left ulnar pulses palpable. Bilateral DP pulses weakly palpable. +1 edema to left arm. POX 93% on 4L NC. Lungs diminished in the
bases. No cough noted. IS encouraged-1250mL achieved. Left pleural chest tube to -20cm suction with scant serosanguineous drainage. Mediastinal chest tubes x2 y-sited to 1 atrium draining serosanguineous fluid. No air leaks, tidaling, crepitus
noted. Abdomen soft, round, obese, nontender. +BS. Pt reports passing gas. Due to void post deleon removal. Sternal incision approximated with skin glue, CRAFT ARTIST. CT dressing CDI. Right leg incisions approximated with skin glue, covered with JUNAID-CDI.
Left arm incisions approximated with skin glue, covered with JUNAID-CDI. Right IJ cordis intact infusing NSS KVO and Cardizem gtt. Right AC 18g PIV intact infusing insulin gtt per Critical Care Glycemic Protocol. See MAR for medication administration.
See worklist for complete nursing assessment. Plan of care reviewed and patient in agreement.
[2024-08-29] MEDS: ANCEF 5 IV ×2 (08:33→15:51)
[2024-08-29] MEDS: LIDOCAINE 4% PATCH 1 PATCH TOPICAL (08:33)
[2024-08-29] MEDS: NORVASC 2.5 MG PO (08:34)
[2024-08-29] MEDS: LOW STRENGTH ASPIRIN 81 MG PO (08:34)
[2024-08-29] MEDS: LASIX 40 MG IV (08:34)
[2024-08-29] MEDS: SENOKOT-S 1 TABLET PO ×2 (08:34→20:22)
[2024-08-29] MEDS: NEURONTIN 100 MG PO ×3 (08:34→21:36)
[2024-08-29] MEDS: PACERONE 200 MG PO ×3 (08:34→21:36)
[2024-08-29] MEDS: FLEXERIL 5 MG PO ×2 (08:34→17:48)
[2024-08-29] MEDS: PLAVIX 75 MG PO (08:34)
[2024-08-29] MEDS: LIPITOR 40 MG PO (08:35)
[2024-08-29] MEDS: MAGNESIUM OXIDE 500 MG PO ×2 (08:35→20:22)
[2024-08-29] MEDS: PROTONIX 40 MG PO (08:35)
[2024-08-29 09:29] LABS: Glucose - Point of Care 80 mg/dl (70-99)
[2024-08-29] MEDS: NOVOLOG FLEXPEN 4 UNITS SC (09:36)
[2024-08-29] MEDS: BACTROBAN 2% OINTMENT 1 APPLIC NASAL ×2 (10:08→21:35)
[2024-08-29] MEDS: LOPRESSOR 12.5 MG PO (10:08)
--- NOTE | 2024-08-29 10:09 | CM ---
Pricing on Farxiga 10 mg daily through the patient's [employer] [facility], ID# [id number], is $0 copay
Jardiance 10mg daily is $0 copay.
--- NOTE | 2024-08-29 10:30 | PTCARENOTE ---
Pt voided clear yellow urine in the urinal. Assisted back to bed. Left pleural chest tube d/c per orders. Pt tolerated. New dressing applied. Epicardial v-wire insulated. Pt resting in bed at this time.
[2024-08-29 11:29] LABS: Glucose - Point of Care 142 mg/dl (70-99)
--- NOTE | 2024-08-29 11:45 | PTCARENOTE ---
Pt assisted OOB with Cardiac Rehab. Ambulated in the pardo 200', pt tolerated. Reassessed sitting in the chair. NSR on tele with rates in the 80s. BP 117/76. POX 95% on 4L NC. Mediastinal CTx2 draining serosanguinous fluid, output WNL. Pt voiding
independently in the urinal, clear yellow urine. Surgical incisions stable. No other acute changes from previous assessment.
[2024-08-29] MEDS: NOVOLOG FLEXPEN 8 UNITS SC ×2 (12:49→18:35)
[2024-08-29 12:53] LABS: Glucose - Point of Care 117 mg/dl (70-99)
--- NOTE | 2024-08-29 13:48 | CM ---
Chart reviewed. Patient is OOB sitting in the chair. Patient is independent of ADLS, lives with his in a 2 STH, 1 ANTHONY, 0 DME. Plan is for the patient to return home with CT Transitional RN. CM to follow
[2024-08-29] MEDS: FERRLECIT 110 MG IV (14:22)
[2024-08-29 14:32] LABS: Glucose - Point of Care 202 mg/dl (70-99)
[2024-08-29] MEDS: NOVOLIN R INSULIN INFUSION 100 IV (15:44)
[2024-08-29 15:45] LABS: Glucose - Point of Care 174 mg/dl (70-99)
[2024-08-29] MEDS: NSS IV (15:51)
--- NOTE | 2024-08-29 16:00 | PTCARENOTE ---
Pt reassessed. NSR on tele with rates in the 80s. BP 133/74. POX 93% on 4L NC. Surgical sites stable. CT output WNL. Insulin gtt continues to infuse. Pt voiding independently in the urinal. Resting in bed at this time.
[2024-08-29 17:27] LABS: Glucose - Point of Care 124 mg/dl (70-99)
[2024-08-29 18:38] LABS: Glucose - Point of Care 99 mg/dl (70-99)
--- NOTE | 2024-08-29 20:00 | PTCARENOTE ---
Received pt from [facility]. pt is POD #[address] Espinosa. NSR on monitor, VSS. Heart sounds audible but distant, right radial, left ulnar, b/l dp palpable, trace generalized edema, temp epicardial wires insulated. lung clear, diminished at
bases, 94% on 4LNC, pt declined CPAP for sleeping, x2 MS CT to -20 wall suction, no air leaks, tidaling, no crepitus. +BS x4 quadrants, abdomen soft, round/obese, non tender. pt voiding clear yellow urine. surgical sites maintained. right IJ cordis
and PIV all maintained. insulin infusing. will continue to monitor.
[2024-08-29] MEDS: LOPRESSOR 25 MG PO (20:22)
[2024-08-29 20:41] LABS: Glucose - Point of Care 249 mg/dl (70-99)
[2024-08-29 21:41] LABS: Glucose - Point of Care 203 mg/dl (70-99)
[2024-08-29 22:39] LABS: Glucose - Point of Care 133 mg/dl (70-99)
[2024-08-29] MEDS: DILAUDID 0.5 MG IV (22:40)
[2024-08-30] VITALS (32 sets, daily range): BP systolic 92–139; BP diastolic 57–96; PULSE 83; O2SAT 94–97; BMI 36.2
--- NOTE | 2024-08-30 | PTCARENOTE ---
Pt assessment unchanged. SR on monitor. VSS. on going pain management. call gross within reach. will continue to monitor.
[2024-08-30 00:22] LABS: Glucose - Point of Care 81 mg/dl (70-99)
[2024-08-30 01:36] LABS: Glucose - Point of Care 120 mg/dl (70-99)
[2024-08-30 02:51] LABS: Glucose - Point of Care 95 mg/dl (70-99)
[2024-08-30 03:14] LABS: Blood Urea Nitrogen 23 mg/dl (9-20); Calcium 8.3 mg/dl (8.4-10.2); Carbon Dioxide 28 mmol/L (22-30); Chloride 103 mmol/L (98-107); Estimated Creatinine Clearance > 125 ml/min; Glucose 95 mg/dl (70-99); Hematocrit 32.5 % (39.0-52.0); Hemoglobin 10.9 g/dL (13.0-18.0); Mean Corp Hgb Conc. 33.5 g/dL (33.0-37.0); Mean Corpuscular Hgb 27.7 pg (27.0-31.0); Mean Corpuscular Volume 82.5 fL (80.0-94.0); Platelet Count 180 10^3/uL (130-400); Potassium 3.7 mmol/L (3.5-5.1); Red Blood Cell Count 3.94 10^6/uL (4.70-6.10); Red Cell Dist. Width 13.4 % (11.5-14.5); Sodium 136 mmol/L (135-145); White Blood Cell Count 16.7 10^3/uL (4.8-10.8); eGFR > 60.00
[2024-08-30] MEDS: NOVOLIN R INSULIN INFUSION 100 IV (04:16)
[2024-08-30 04:25] LABS: Glucose - Point of Care 84 mg/dl (70-99)
--- NOTE | 2024-08-30 04:31 | PTCARENOTE ---
Pt assessment unchanged. NSR on monitor. VSS. pt resting comfortably.
[2024-08-30] MEDS: ROXICODONE 5 MG PO ×3 (04:53→22:16)
[2024-08-30] MEDS: KCL 40 MEQ PO ×4 (04:53→20:42)
[2024-08-30] MEDS: TYLENOL 1000 MG PO ×3 (04:54→22:16)
[2024-08-30 04:58] LABS: Glucose - Point of Care 101 mg/dl (70-99)
[2024-08-30 06:35] LABS: Glucose - Point of Care 137 mg/dl (70-99)
--- NOTE | 2024-08-30 07:37 | W.PN.CT ---
Today's Communication / Plan
-
-pod #2
-no issues overnight
-CT outputs: 2 meds 50/230 in 12/24 hrs
-BB was increased to 25 bid
-wean off O2 as tolerated
-current meds (ASA, Plavix, Lipitor, Lopressor, Norvasc, Amio, Protonix)
-encourage IS, OOB, ambulate
-appreciate everyone's input
Assessment / Plan
-
- Multivessel Coronary Artery Disease with exertional angina- s/p CABG x3 (In situ FAYE to LAD, Ao to left radial to OM, Ao to RSVG to RPDA) by Dr. Espinosa on 08/28/24, pod #2
- Intraop ARISTIDES: LVEF preop and postop was 60% with no significant regional wma. There was trace to mild mitral valve insufficiency. Initially with clamp off, he had moderate mitral valve insufficiency that was functional then improved to
trace/baseline after period of perfusion and recovery.
- HTN/HLD
- Class 2 obesity (BMI 35)
- ASHLY, on CPAP
- Nqb-jlpqdfr-tbtjbbynl diabetes mellitus (HgA1C 9.4)
- History of colon cancer, status post colectomy in 2020
- Acute postop blood loss anemia - stable, no transfusion
- Acute postop atelectasis
- Acute postop hypovolemia with subsequent hypervolemia
Discussed patient care with: Nursing and Care Team
Subjective
-
Date of Service: August 30, 2024
Objective Data
-
PT 16.6 Sec (11.4-14.6) H 08/28/24 17:40
INR 1.29 08/28/24 17:40
APTT 29.1 Sec (23.4-35.0) 08/28/24 17:40
Vital Signs
Vital Signs
Temp Pulse Resp BP Pulse Ox
98.6 F 85 16 133/91 91
08/30/24 00:00 08/30/24 00:30 08/30/24 00:00 08/30/24 00:00 08/30/24 00:30
CT Intake/Output/Weight
08/29/24 08/29/24 08/30/24
06:59 18:59 06:59
Intake Total 507.5 / 643.3 219.0 / 323.1 104.1 / 323.1
Output Total 885 / 1025 1755 / 2105 350 / 2105
Balance -377.5 / -381.7 -1536.0 / -1781.9 -245.9 / -1781.9
SaO2: 91
Physical Exam
-
General: Awake and AOx3
Cardiovascular: Regular rate & rhythm, No Murmurs and No Rub
Respiratory: Decreased Breath Sounds
Sternum: Stable
Incision: Clean, Dry and Intact
Abdomen: soft, nontender, nondistended, + decreased bowel sounds
Extremities: trace Edema (1+DPs)
Data Reviewed
-
Lab Results: Results Reviewed
Medications: Active Meds Reviewed
Chest X-Ray: Report Reviewed and Image Reviewed
ECG: Report Reviewed and Image Reviewed
--- NOTE | 2024-08-30 07:52 | PN.DE.MGMTRT ---
Insulin Management
- -
08/30/2024: Diabetes Management Follow up
Patient elective admission 08/28 for CABG + EHSAN clip. PMH: Borderline essential HTN, HLD, colon CA, suspect ASHLY, Obesity and T2DM. Prior to admission was taking metformin 1000 mg BID and Ozempic 1 mg weekly on Monday. A1C on admission 9.4%, Cr 0.6,
eGFR > 60. States he has had diabetes for 1 year. He sees endo at [facility] for ongoing diabetes care. States he has a working glucose monitor and supplies. Was only testing daily.
POD #2 s/p CABG x 3. Patient is awake alert and oriented, sitting up in chair, offers no complaints, able to discuss diabetes care. Family at bedside.
Pt was continued on insulin infusion over night, glucose range 84 to 137, requiring 0.3 to 10 units of insulin/ hr.
Per protocol will continue glycemic protocol and transition after dinner this evening. Will give Lantus 12 units x1, 1.5hrs prior to turning off drip.
Will start Farxiga 10mg daily, 1st dose now. Lantus 15 units @ HS. Resume Metformin 1000 mg BID. May resume Ozempic upon discharge.
Discussed and emphasized importance of glucose control, to avoid diabetes related complications, especially after cardiac surgery.
States he has a CGM at home but does not use it, instructed pt to ask to bring in the CGM and we will assist him to get it started.
Discussed with nurse. Will cont to follow
Pt will be seen by the Diabetes Nurse Educator for insulin instructions.
Diabetes History
- -
Type of Diabetes: 2 requiring insulin
Pre-Admission Diabetes Regimen
08/30/24
02:49
Creatinine 0.7
Lab Results
Hemoglobin A1c 9.4 % (4.0-5.6) H 08/23/24 08:52
Insulin Pump Settings
IP Diabetes Regimen
08/29/24 08/29/24 08/29/24
09:28 11:27 12:48
Glucose
POC Glucose 80 142 H 117 H
08/29/24 08/29/24 08/29/24
14:31 15:42 17:25
Glucose
POC Glucose 202 H 174 H 124 H
08/29/24 08/29/24 08/29/24
18:34 20:24 21:39
Glucose
POC Glucose 99 249 H 203 H
08/29/24 08/30/24 08/30/24
22:38 00:21 01:35
Glucose
POC Glucose 133 H 81 120 H
08/30/24 08/30/24 08/30/24
02:49 04:23 04:57
Glucose 95
POC Glucose 95 84 101 H
08/30/24
06:34
Glucose
POC Glucose 137 H
Meal type: Breakfast
Amount consumed: 100%
Patient Education
[2024-08-30] MEDS: NOVOLOG FLEXPEN 8 UNITS SC (07:53)
[2024-08-30 07:57] LABS: Glucose - Point of Care 101 mg/dl (70-99)
--- NOTE | 2024-08-30 08:00 | PTCARENOTE ---
pt received from previous RN, oriented, OOB in chair. SR on the monitor, HR 70-90s. V wire insulated. SBP 120s. palpable pulses. pt on 5LNC, 94% POX. lungs diminished. IS encouraged. CTx2, no air leak or crepitus noted. pt abdomen round, s/n. diet
tolerated. voids. sternal incision GHANSHYAM. chest tube dressing c/d/i. L radial site ecchymotic, GHANSHYAM. RIJ cordis maintained. PIV. insulin gtt running per protocol. see worklist for VS, I&O, and assessment.
[2024-08-30] MEDS: PROTONIX 40 MG PO (08:12)
[2024-08-30] MEDS: LASIX 40 MG IV (08:12)
[2024-08-30] MEDS: NEURONTIN 100 MG PO ×3 (08:12→22:15)
[2024-08-30] MEDS: PLAVIX 75 MG PO (08:12)
[2024-08-30] MEDS: LOW STRENGTH ASPIRIN 81 MG PO (08:12)
[2024-08-30] MEDS: MAGNESIUM OXIDE 500 MG PO ×2 (08:13→20:43)
[2024-08-30] MEDS: LIDOCAINE 4% PATCH 1 PATCH TOPICAL (08:13)
[2024-08-30] MEDS: LIPITOR 40 MG PO (08:13)
[2024-08-30] MEDS: LOPRESSOR 25 MG PO ×2 (08:13→20:43)
[2024-08-30] MEDS: SENOKOT-S 1 TABLET PO ×2 (08:13→20:43)
[2024-08-30] MEDS: PACERONE 200 MG PO ×3 (08:13→22:16)
[2024-08-30] MEDS: NORVASC 2.5 MG PO (08:13)
[2024-08-30] MEDS: BACTROBAN 2% OINTMENT 1 APPLIC NASAL ×2 (08:14→20:42)
--- NOTE | 2024-08-30 08:25 | W.PN.INTV ---
Today's Communication / Plan
Recommendations
Up OOB as tolerated
Pain control
Wean down supplemental O2 flow rate while keeping SpO2 >90-94%
Patient has a Hx of ASHLY, but he says it was mild and was not recommended to use APAP device � this can be discussed as an outpatient and I will arrange for office visit with me
Continue insulin drip until later today; goal BG 110�140
Cardiac rehab consult
Patient will be weaned off the insulin drip later today and then be downgraded to CVICU�telemetry status. Once downgraded to CVICU�telemetry status, Protective Signal Operator services will sign off at that time. Please reconsult if there are any additional
questions/concerns, or if patient's respiratory status deteriorates.
Assessment
-
Assessment: 63-year-old male non-smoker with a past medical history of DM type II, hypertension, hyperlipidemia, history of colon cancer s/p partial colectomy and multivessel CAD. Patient underwent a left heart catheterization on 08/15/2024 showing
subtotal mid RCA lesion with mild as moderate diffuse disease of the RCA, severe proximal circumflex disease, concomitant ostial OM 2 disease and showed moderate�severe proximal to mid LAD disease. Stress test on 08/02/2024 was positive for
ischemia. He endorsed shortness of breath and central chest tightness. Patient saw Dr. Espinosa on 08/21/2024 and reviewed the risks and benefits of a surgical revascularization procedure. Patient consented to this procedure and on 08/28/2024 he
underwent a CABG x 3. There were no complications and he was transferred to the CVICU postoperatively and Protective Signal Operator services consulted for additional management/recommendations.
Chronic conditions VISITOR USE ASSISTANT: DM type II, history of enlarged RV, hypertension, hyperlipidemia, history of colon cancer, ASHLY on CPAP
Impression:
#Multivessel CAD with exertional angina s/p CABG x 3 (POD #2)
#Acute anemia due to above
#Hyponatremia
#DM type II complicated by hyperglycemia
#Hypocalcemia
#Hx of ASHLY, not on CPAP
#Hyperlipidemia
#Morbid obesity
#Hypertension
#History of colon cancer s/p partial colectomy (2020)
Plan:
Patient successfully extubated at midnight on 08/29/2024, and is currently on 4 L/min nasal cannula, breathing comfortably and saturating 95-96%
Wean down supplemental O2 to maintain SpO2 >90-94%
prn nebulized bronchodilators - not currently bronchospastic
Encourage incentive spirometer use q1hr while awake
Maintain MAP>65
Replete electrolytes with K>4, Mg>2
Monitor chest tube output (left pleural chest tube X 1 DC'd on 08/29; mediastinal chest tubes x 2 to be DC'd this AM)
Monitor hemoglobin
Monitor platelet count and coags
Transfuse blood products as needed to maintain Hb>7g/dL, plt>50k (given post-operative status)
CT surgery managing chest tubes
Monitor blood sugar to maintain euglycemia with goal BG 110-140
Insulin drip per protocol --> plan to be stopped later today
Aspiration precautions
DVT prophylaxis
Early nutrition
Early mobilization
Patient will be weaned off the insulin drip later today and then be downgraded to CVICU�telemetry status. Once downgraded to CVICU�telemetry status, Protective Signal Operator services will sign off at that time. Thank you for allowing us to be involved in the
care of this patient. Please reconsult if there are any additional questions/concerns, or if patient's respiratory status deteriorates.
Total time spent today was 58 minutes for this encounter. Time includes reviewing laboratory test/imaging results, reviewing pertinent medical records, obtaining and reviewing medical history, performing an appropriate exam, ordering medications,
tests and procedures. Time also includes documentation of this encounter, coordinating patient care and communicating with other healthcare professionals. Total time does not include separately billed tests performed on this date of service.
Subjective Dataa
Subjective Data
Date of Service:
Date of Service: August 30, 2024
Chief Complaint: Protective Signal Operator Follow Up
Subjective:
Patient was seen and evaluated today at bedside. Sitting in a chair no acute distress. Walked today with no shortness of breath or chest pain. Currently on 3 L/min nasal cannula and saturating 93%. Remains on insulin drip currently at 0.2
units/hr.
Review of Systems
General: Other (Negative unless mentioned above)
Objective Data
Data Reviewed
Vital Signs / I&O / Oxygen:
Vital Signs
Temp Pulse Resp BP Pulse Ox
98.6 F 97 18 125/93 94
08/30/24 07:24 08/30/24 08:00 08/30/24 07:24 08/30/24 08:00 08/30/24 07:45
Intake and Output
08/29/24 08/30/24 08/31/24
06:59 06:59 06:59
Intake Total 624.8 / 643.3 399.3 / 419.3
Output Total 1015 / 1025 2555 / 2555
Balance -390.2 / -381.7 -2155.7 / -2135.7 /
SaO2 [CPAP] 96
SaO2 [SIMV] 98
SaO2 94
Nasal Cannula flow liters per 5
minute
Physical Exam
General: Respiratory Distress (negative), Comfortable, Chills (negative) and Sweats (negative)
HEENT: Normocephalic, Anicteric and Other (thick neck)
Cardiovascular: S1-S2 and Peripheral Edema (negative)
Respiratory: Clear, Wheeze (negative), Crackles (negative), Rhonchi (negative), Non-Labored Respirations and Chest Tube (Mediastinal chest tubes x 2)
GI: Soft, Distended (Abdominal obesity), Non Tender and Normal Bowel Sounds
Neurology: AO x 3 and Tremors (negative)
Skin: Warm, Dry, Cyanosis (negative) and Jaundice (negative)
Labs/Micro/Reports
Lab Data
08/30/24 02:49
08/30/24 02:49
[2024-08-30] MEDS: FARXIGA 10 MG PO (09:24)
[2024-08-30 10:09] LABS: Glucose - Point of Care 272 mg/dl (70-99)
[2024-08-30 10:49] LABS: Glucose - Point of Care 202 mg/dl (70-99)
--- NOTE | 2024-08-30 11:08 | W.PN.CD ---
Today's Communication / Plan
-
Patient feels well. Remains in sinus rhythm postop.
BP relatively low and limits meds.
Additional postop treatment including timing of chest tube removal as directed by CT surgery
Impression / Plan
-
Mr. Wright is a 63 year old man with exertional angina found to have multivessel CAD now s/p CABGx3 08/28/24 (FAYE-LAD, LR-OM, RSVG-RPDA; Espinosa).
s/p CABGx3 08/28/24 (FAYE-LAD, LR-OM, RSVG-RPDA; Espinosa).
-Remains in sinus
Stable. Continue postop care as directed by CT surgery
Diabetes
-A1c 9.4
-cont. insulin
-consult endocrine for further management
HTN
-currently normotensive
Class 2 obesity (BMI 35): good candidate for GLP1ra as outpatient given CAD and DM
ASHLY, on CPAP
.
History of colon cancer, status post colectomy in 2020
Studies:
EKG - sinus with inferior infarct
Intraop ARISTIDES: LVEF preop and postop was 60% with no significant regional wma. There was trace to mild mitral valve insufficiency. Initially with clamp off, he had moderate mitral valve insufficiency that was functional then improved to
trace/baseline after period of perfusion and recovery.
Physical Exam
Vital Signs/Labs
Vital Signs
Temp Pulse Resp BP Pulse Ox
98.6 F 81 18 92/57 94
08/30/24 07:24 08/30/24 10:00 08/30/24 09:00 08/30/24 10:00 08/30/24 08:21
08/29/24 08/30/24 08/31/24
06:59 06:59 06:59
Actual Weight 106.9 kg 108.1 kg
08/30/24 02:49
08/30/24 02:49
PT 16.6 Sec (11.4-14.6) H 08/28/24 17:40
INR 1.29 08/28/24 17:40
APTT 29.1 Sec (23.4-35.0) 08/28/24 17:40
Magnesium 2.0 mg/dl (1.6-2.3) 08/30/24 02:49
Physical Exam
Constitutional: No acute distress
EENT: Anicteric
Cardiovascular: Rhythm & rate is regular
Respiratory: Wheeze Absent and Rhonchi Absent
GI: Soft and Non tender
Neuro/Psych: Oriented and AO x 3
Other: Skin
Data Reviewed
-
Date of Service: August 30, 2024
Medical Decision Making: Reviewed Test Results
X-Ray/CT/US/MRI/NUC/PET: Report Reviewed by me
Medical Tests (PFT, Pathology etc): Report Reviewed by me
Labs: Labs Reviewed by me
--- NOTE | 2024-08-30 11:14 | PTCARENOTE ---
pt VSS, pt placed back to bed @~0930, V wire pulled by ELECTROMATIC TYPIST. q15min VS completed. @~1030 CTs dc'd as ordered, dressing c/d/i. OOB to chair w/ minimal assist. voids in urinal.
[2024-08-30 12:31] LABS: Glucose - Point of Care 105 mg/dl (70-99)
[2024-08-30] MEDS: FERRLECIT 110 MG IV (13:44)
[2024-08-30 13:50] LABS: Glucose - Point of Care 77 mg/dl (70-99)
[2024-08-30] MEDS: NOVOLOG FLEXPEN 4 UNITS SC (13:50)
--- NOTE | 2024-08-30 14:07 | CM ---
Chart reviewed. Patient OOB sitting in the chair. Family at bedside. Patient is independent of ADLS, lives with his in a 2 [address], 1 ANTHONY, 0 DME. Plan is for the patient to return home with CT Transitional NR. CM to follow
[2024-08-30 15:10] LABS: Glucose - Point of Care 303 mg/dl (70-99)
[2024-08-30] MEDS: LANTUS 0.12 UNITS SC (15:36)
--- NOTE | 2024-08-30 15:45 | PTCARENOTE ---
pt VSS, 3LNC, 94% POX. IS encouraged. voids in urinal. insulin gtt running as ordered.
[2024-08-30 16:00] LABS: Glucose - Point of Care 259 mg/dl (70-99)
--- NOTE | 2024-08-30 16:53 | PTCARENOTE ---
I met with Estuardo and his to review diabetes self management. I assisted him with inserting a Dexcom G7 sensor that he had at home but had not started. We discussed when to monitor his glucose at home with his One touch Ultra meter. He had his
glucometer supplies at his bedside. I reviewed both long and rapid acting insulin and instructed him on the onset/peak and duration. We reviewed storage and he demonstrated a sample injection. I encouraged him to administer all injections while
admitted to practice his technique with RN supervision. I discussed hyper and hypoglycemia. We discussed hypoglycemia recognition and treatment. Estuardo was able to verbalize understanding and he plans to carry glucose with him at all times. I
encouraged him to obtain medical identification and follow up with his primary care and maintenance and operations supervisor once discharged.
[2024-08-30 17:03] LABS: Glucose - Point of Care 169 mg/dl (70-99)
[2024-08-30 17:31] LABS: Blood Urea Nitrogen 22 mg/dl (9-20); Calcium 8.3 mg/dl (8.4-10.2); Carbon Dioxide 27 mmol/L (22-30); Chloride 101 mmol/L (98-107); Estimated Creatinine Clearance > 125 ml/min; Glucose 174 mg/dl (70-99); Potassium 3.8 mmol/L (3.5-5.1); Sodium 133 mmol/L (135-145); eGFR > 60.00
[2024-08-30 17:33] LABS: Glucose - Point of Care 155 mg/dl (70-99)
[2024-08-30] MEDS: NOVOLOG FLEXPEN SC (17:56)
[2024-08-30] MEDS: GLUCOPHAGE 1000 MG PO (17:57)
[2024-08-30] MEDS: NSS 500 IV (17:57)
[2024-08-30 18:23] LABS: Glucose - Point of Care 140 mg/dl (70-99)
--- NOTE | 2024-08-30 21:30 | PTCARENOTE ---
Patient received OOB in chair. Patient A+A+Ox3. No neurological deficits noted. Patient ambulated in hallway with minimal assistance. No c/o headache, dizziness or lightheadedness. O2 at 3L via NC. SpO2 92%. I.S. 1500 ml. Chest tube dressing
intact. Sinus Rhythm. Heart rate 80's. Blood pressure 127/76 (88). Patient with no c/o chest pain, pressure or discomfort. Normoactive bowel sounds. No BM. No c/o nausea. No vomiting. Voiding without difficulty. Positive, palpable pulses.
Left radial graft site - Incision intact - Surgical adhesive - Open to air - Positive circulation, sensation and mobility to left upper extremity. Sternal incision intact - Surgical adhesive - Open to air. RLE incision intact - Surgical adhesive -
Open to air. Assessment as documented.
[2024-08-30] MEDS: MELATONIN 5 MG PO (22:16)
[2024-08-30 22:22] LABS: Glucose - Point of Care 217 mg/dl (70-99)
--- NOTE | 2024-08-31 00:30 | PTCARENOTE ---
Patient sleeping without difficulty. No further changes from previous assessment.
[2024-08-31] MEDS: ROXICODONE 2.5 MG PO (01:19)
[2024-08-31 04:00] VITALS: BP 138/85
[2024-08-31 04:13] LABS: Hematocrit 31.9 % (39.0-52.0); Hemoglobin 10.3 g/dL (13.0-18.0); Mean Corp Hgb Conc. 32.3 g/dL (33.0-37.0); Mean Corpuscular Hgb 27.2 pg (27.0-31.0); Mean Corpuscular Volume 84.2 fL (80.0-94.0); Mean Platelet Volume 9.9 fL (7.4-10.4); Platelet Count 170 10^3/uL (130-400); Red Blood Cell Count 3.79 10^6/uL (4.70-6.10); Red Cell Dist. Width 13.7 % (11.5-14.5)
[2024-08-31 04:36] LABS: Blood Urea Nitrogen 20 mg/dl (9-20); Calcium 8.4 mg/dl (8.4-10.2); Carbon Dioxide 25 mmol/L (22-30); Chloride 102 mmol/L (98-107); Estimated Creatinine Clearance > 125 ml/min; Glucose 132 mg/dl (70-99); Magnesium 2.1 mg/dl (1.6-2.3); Potassium 4.6 mmol/L (3.5-5.1); Sodium 136 mmol/L (135-145); eGFR > 60.00
--- NOTE | 2024-08-31 05:00 | PTCARENOTE ---
Patient A+A+Ox3. No neurological deficits noted. AM labs collected and sent. Patient OOB to bathroom to void. Minimal assistance. Sternal Precautions. Steady gait. No c/o headache, dizziness or lightheadedness. No c/o pain or discomfort.
Standing scale weight 107.5 kg. Patient back to bed. Assessment/Interventions as documented.
[2024-08-31 05:19] VITALS: BMI 36.0
--- NOTE | 2024-08-31 06:00 | W.PN.CT ---
Today's Communication / Plan
-
-No major issues overnight. Hemodynamically intact
-Off all drips
-D/C cordis
-Hyponatremia has resolved, 136
-Cont. current meds (ASA, Plavix, Lipitor, Lopressor, Norvasc, Amio, Protonix)
-Encourage use of IS
-Ambulate
-Home today
Assessment / Plan
-
- Multivessel Coronary Artery Disease with exertional angina- s/p CABG x3 (In situ FAYE to LAD, Ao to left radial to OM, Ao to RSVG to RPDA) by Dr. Espinosa on 08/28/24, pod #3
- Intraop ARISTIDES: LVEF preop and postop was 60% with no significant regional wma. There was trace to mild mitral valve insufficiency. Initially with clamp off, he had moderate mitral valve insufficiency that was functional then improved to
trace/baseline after period of perfusion and recovery.
- HTN/HLD
- Class 2 obesity (BMI 35)
- ASHLY, on CPAP
- Foz-pnkotzk-owlmluumh diabetes mellitus (HgA1C 9.4)
- History of colon cancer, status post colectomy in 2020
- Acute postop blood loss anemia - stable, no transfusion
- Acute postop atelectasis
- Acute postop hypovolemia with subsequent hypervolemia
- Acute postop hyponatremia, 133
Discussed patient care with: Cardiology, Nursing, Respiratory Therapy, Pharmacy and Care Team
Subjective
-
Date of Service: August 31, 2024
Pt c/o mild incisional pain, otherwise feels well. Ambulating halls without difficulty. Wants to go home
Objective Data
-
Lab Results
08/31/24 03:53
08/31/24 03:53
PT 16.6 Sec (11.4-14.6) H 08/28/24 17:40
INR 1.29 08/28/24 17:40
APTT 29.1 Sec (23.4-35.0) 08/28/24 17:40
Vital Signs
Vital Signs
Temp Pulse Resp BP Pulse Ox
98.6 F 73 18 138/85 95
08/31/24 04:00 08/31/24 05:00 08/31/24 04:00 08/31/24 04:00 08/31/24 04:00
CT Intake/Output/Weight
08/30/24 08/30/24 08/31/24
06:59 18:59 06:59
Intake Total 180.3 / 419.3 344.8 / 694.8 350 / 694.8
Output Total 800 / 2555 2100 / 3050 950 / 3050
Balance -619.7 / -2135.7 -1755.2 / -2355.2 -600 / -2355.2
SaO2: 95 (RA)
Physical Exam
-
General: Awake, Oriented and AOx3
Cardiovascular: Regular rate & rhythm, No Murmurs and No Gallop
Respiratory: Decreased Breath Sounds (at bases, otherwise clear)
Sternum: Stable
Incision: Clean, Dry, Intact and Dressing Intact
Extremities: No Edema
Data Reviewed
-
Lab Results: Results Reviewed
Medications: Active Meds Reviewed
Chest X-Ray: Report Reviewed and Image Reviewed
ECG: Report Reviewed and Image Reviewed
[2024-08-31] MEDS: TYLENOL PO (06:58)
[2024-08-31 07:41] VITALS: BP 139/75
[2024-08-31 08:10] LABS: Glucose - Point of Care 144 mg/dl (70-99)
[2024-08-31] MEDS: SENOKOT-S 1 TABLET PO (08:10)
[2024-08-31] MEDS: GLUCOPHAGE 1000 MG PO (08:10)
[2024-08-31] MEDS: LOW STRENGTH ASPIRIN 81 MG PO (08:10)
[2024-08-31] MEDS: PLAVIX 75 MG PO (08:10)
[2024-08-31] MEDS: MAGNESIUM OXIDE 500 MG PO (08:10)
[2024-08-31] MEDS: PROTONIX 40 MG PO (08:10)
[2024-08-31] MEDS: PACERONE 200 MG PO (08:10)
[2024-08-31] MEDS: FARXIGA 10 MG PO (08:10)
[2024-08-31] MEDS: ROXICODONE 5 MG PO (08:10)
[2024-08-31] MEDS: LIPITOR 40 MG PO (08:10)
[2024-08-31] MEDS: NORVASC 2.5 MG PO (08:11)
[2024-08-31] MEDS: NEURONTIN 100 MG PO (08:11)
[2024-08-31] MEDS: TOPROL XL 50 MG PO (08:11)
[2024-08-31] MEDS: TYLENOL 1000 MG PO (08:11)
[2024-08-31] MEDS: BACTROBAN 2% OINTMENT 1 APPLIC NASAL (08:12)
[2024-08-31] MEDS: LASIX 40 MG IV (08:37)
--- NOTE | 2024-08-31 09:02 | PTCARENOTE ---
assumed care of pt from previous shift RN, sinus rhythm on tele, VSS, + peripheral pulses, +1 edema to bilateral lower extremities. Lungs diminished, pox 92% on RA, coughing and deep breathing encouraged. +bs, tolerating PO intake. Voids
spontaneously. Cordis removed as ordered. PIV flushes easily. Plan of care reviewed and questions encouraged.
--- NOTE | 2024-08-31 09:48 | W.DCSUMMARY ---
Discharge Summary
Discharge Data
Date of Admission: 08/28/24
Date of Discharge: 08/31/24
Total time spent discharging patient (in min): 30
-
Pending Results: No
Hospital Course
Primary care physician:
Dr. Robles
Outpatient commutator v ring assembler:
Dr. Donovan Owens
Inpatient consultants:
low pressure firer, diabetes management digital technician, CBC
Procedures:
1. Multi arterial coronary artery bypass grafting x 3 (In situ FAYE to LAD, Ao to left radial to OM, Ao to RSVG to RPDA
Primary Diagnosis:
1. Multivessel Coronary Artery Disease with exertional angina
Secondary Diagnoses:
1. Acute post-op hypervolemia
2. Morbidly obese with a BMI of greater than 30
3. ASHLY on CPAP
4. Hyperlipidemia
5. Bah-ubyzqlc-xypwxvwef diabetes mellitus
6. Hypertension
7. History of colon cancer status post colectomy in 2020
HPI: 63-year-old male with multiple comorbidities including exertional angina. He underwent left heart cath which found multivessel coronary artery disease. Given his diabetic status, he was offered surgical revascularization with multi arterial
grafting given his young age and disease pattern. He presented electively on 08/[address] Espinosa.
Hospital course: Patient was admitted on 08/[address] Espinosa. Postoperatively he returned to the CVICU on Cardizem, Levophed, insulin, and Precedex infusions. Patient initially was in a respiratory acidosis and vent settings were changed.
Precedex was weaned off and patient was extubated later that night. On 08/29 postoperative day 1 patient was diuresed with 40 mg of IV Lasix and left pleural chest tube was discontinued. He was started on low-dose beta-janette and it was tolerated
well. Due to the patient's elevated hemoglobin A1c of 9.4 he was continued on an insulin infusion. On 08/30 postoperative day 2 patient was diuresed with Lasix twice daily and beta-blockers were uptitrated. He was later transitioned off his
insulin infusion and started on Lantus, Farxiga, and metformin. Patient's epicardial wires were then pulled along with his mediastinal chest tubes. On 08/31 postoperative day 3, patient looked well. His Lopressor was changed to his home dose and
he was diuresed with Lasix. 2 view chest x-ray remained stable. He was deemed stable for discharge home with diuresis and follow-up BMP in 1 week.
Home medication changes:
see below
Discharge Plan
-
Patient Disposition: Home (Routine Discharge)
Discharge Diagnosis/Procedures: CABG x3 (In situ FAYE to LAD, Ao to left radial to OM, Ao to RSVG to RPDA)
Condition: Good
Diet: Low Cholesterol, 2 Gram Sodium and Diabetic, Carb Controlled
Activity: No strenuous activity
Driving Restrictions: Not until seen by your Dr
Bathing Restrictions: OK to Shower
Blood Work: BMP in 1 week
Other Services: Cardiac Rehab
Specialty Instructions: Weigh Daily- Call MD for wt gain/loss 3 lbs overnight/5 lbs in 1 week
Activity Restrictions/Additional Instructions:
Patient to call [facility] to set up Cardiac Rehab [phone].
ACTIVITY:
-No strenuous activity: no heavy lifting, pushing, pulling anything over 15 pounds for one month
-continue to use stairs as tolerated
DRIVING RESTRICTIONS:
-No driving for one month or until approved by your surgeon
WOUND CARE:
-Shower daily. Use soap & water.
-No lotions, creams or powders on incision area.
DIET:
-continue a low fat/low cholesterol diet.
-IF you are diabetic, continue carb controlled diet.
CARDIAC REHAB:
-Please make appointment to start in 5-6 weeks with your local hospital program. (See Cardiac Rehabilitation Discharge Booklet).
SPECIALTY INSTRUCTIONS:
-Weigh yourself daily. Call your physician for any weight gain/loss of 3 lbs overnight or 5 lbs in one week.
-REPORT any clicking noise or uneven appearance of your sternum to your surgeon immediately.
-If you smoke, you are instructed to quit. The [place] smoking hotline phone number is [phone]
Referrals:
CT Transitional Care Nurse [Outside] (The Cardiothoracic Transitional Care Nurse will call you to set up a visit in 1-2 days.)
James Lang MD [Active] - in one to two months (Discuss sleep disordered breathing and options for sleep apnea)
Prasanna Robles MD [Family Provider] -
Donovan Owens MD [Active] - 10/10/24 12:00 pm
Clyde Espinosa MD [Active] - 10/01/24 1:45 pm
Additional Discharge Medication Instructions: You will tale maico for 1 year for your radial graft used for surgery
please take lasix every day for 1 week and weigh yourself daily
Prescriptions:
New
amlodipine 2.5 mg Tablet
2.5 mg PO DAILY Qty: 90 3RF
clopidogrel 75 mg Tablet
75 mg PO DAILY Qty: 30 0RF
acetaminophen 325 mg Tablet
650 mg PO Q4HPRN PRN (Reason: mild pain,headache,temp >101F ) Qty: 0 0RF
pantoprazole 40 mg Tablet,Delayed Release (Dr/Ec)
40 mg PO DAILY Qty: 30 0RF
gabapentin 100 mg Capsule
100 mg PO TID Qty: 30 0RF
oxycodone 5 mg Tablet
2.5 mg PO Q6H PRN (Reason: severe pain) Qty: 20 0RF
dapagliflozin propanediol 10 mg Tablet
10 mg PO DAILY Qty: 60 0RF
furosemide [Lasix] 40 mg tablet
40 mg PO DAILY Qty: 7 0RF
potassium chloride 10 mEq tablet extended release
10 meq PO DAILY Qty: 7 0RF
Continued
atorvastatin 40 mg Tablet
40 mg PO DAILY
metoprolol succinate 50 mg Tablet Extended Release 24 Hr
50 mg PO DAILY
aspirin 81 mg Tablet,Delayed Release (Dr/Ec)
81 mg PO DAILY
metformin 1,000 mg Tablet
1,000 mg PO BID
Ozempic 1 mg/dose (4 mg/3 mL) Pen Injector
1 mg SC QWEEK
Rx Instructions:
Monday, pt states it had been 'a month' since he last took medication
Discharge Orders:
Discharge Patient (As Directed); Ordered 08/31/24
Ordered By: Tiffany Dempsey
Care Plan Goals
Care Plan Goals:
Problem: Readiness for enhanced knowledge related to diagnosis and treatment plan
Goal: Understand your diagnosis and treatment plan needs, including medications if applicable.
Instructions: Know your diagnosis, underlying causes and treatment plan options, including medications if applicable. Consult with your health care team to learn about your diagnosis and treatment plan, including medications if applicable.
Discharge Date and Time
Print Language: MARTINIQUAIS
[2024-08-31 11:15] VITALS: BP 133/80
[2024-08-31 11:22] VITALS: BP 147/80
[2024-08-31 11:41] VITALS: BP 133/80; BP 147/80; PULSE 82; O2SAT 92; O2SAT 94
--- NOTE | 2024-08-31 12:18 | PTCARENOTE ---
tele monitor and IV line removed, pt showered. Discharge instructions, medication list and follow up appointments reviewed w the pt and his family, questions encouraged.
--- NOTE | 2024-09-04 14:50 | PN.CDI ---
CDI
- -
CDI:
Physician Documentation Request
Admit Date: 08/28/24 07:55
Dear Doctor Francisca,
Please review the following and provide your response in the progress notes.
Clinical Indicators:
PN, 08/28
# Acute postop respiratory acidosis on 100% FiO2
#-PEEP increased to 10, RR increased to 18
Software [employer], PN, 08/30
#Wean down supplemental O2 flow rate while keeping SpO2 >90-94%
#Plan:
#...Patient successfully extubated at midnight on 08/29/2024,
#...and is currently on 4 L/min nasal cannula, breathing comfortably
#...and saturating 95-96%
#Wean down supplemental O2 to maintain SpO2 >90-94%
#...Walked today with no shortness of breath or chest pain.
#...Currently on 3 L/min nasal cannula and saturating 93%.
Laboratory Tests
08/28/24
18:35
pH 7.35
pCO2 44
pO2 153 H
HCO3 24.3
Base Excess -1.5
ABG O2 Sat (Measured) 99.3 H
Extubated 08/29
08/29 O2 6L
08/30 O2 5L
Based on the above and your clinical assessment, please clarify which of the following accurately represents the patient's respiratory status following surgery:
Acute respiratory failure with hypercapnia
Acute post op respiratory acidosis
Other(please specify)
Additional information for Respiratory Failure:
Recognized criteria for Respiratory Failure (Source: [facility] Apr 2013)
ABGs: (1 or more) Symptoms Indicate:
1. p)2 <60 or RA SPO2 <91% on RA 1. Tachypnea, SOB, dyspnea 1. Type as:
2. pCO2 50 and pH <7.35 2. Use of accessory muscles a. Hypoxic
3. pO2 decrease of pCO2 increase by 3. Pallor or cyanosis b. Hypercapnic
10 mmHg from baseline if known 4. Anxiety or restlessness 2. If due to procedure or due to another cause
5. Unable to speak in full sentences
Supplemental O2 of > 40% Intubation is not required
Use of terms such as suspected, likely, concern for, or probable (associated with a specific diagnosis that is being evaluated, monitored, or treated as if it exists) are acceptable and can be coded in the inpatient setting, when documented at the
time of discharge.
Thank you,
Maya Lombardo RN BSN CCDS
CDI Specialist
please contact via tiger text
Please use your independent medical judgment in providing your response.
== END 2024-08-31 12:19 | disposition home or self-care (01) | DRG 235 ==
LOC: CVICU 07:55
PROVIDERS: Anesthesiology; Clinical Nurse Specialist Acute Care; Nurse Practitioner; Physician Assistant Medical; ADMITTING PHYSICIAN Thoracic Surgery (Cardiothoracic Vascular Surgery); CONSULT PHYSICIAN Internal Medicine Critical Care Medicine; FAMILY PHYSICIAN Internal Medicine
PROC: 03BC4ZZ Excision of Left Radial Artery, Percutaneous Endoscopic Approach (ICD-10-PCS; 2024-08-28)
PROC: 06BP0ZZ Excision of Right Saphenous Vein, Open Approach (ICD-10-PCS; 2024-08-28)
PROC: 021009W Bypass Coronary Artery, One Artery from Aorta with Autologous Venous Tissue, Open Approach (ICD-10-PCS; 2024-08-28)
PROC: 5A1221Z Performance of Cardiac Output, Continuous (ICD-10-PCS; 2024-08-28)
PROC: 02100Z9 Bypass Coronary Artery, One Artery from Left Internal Mammary, Open Approach (ICD-10-PCS; 2024-08-28)
PROC: 02100AW Bypass Coronary Artery, One Artery from Aorta with Autologous Arterial Tissue, Open Approach (ICD-10-PCS; 2024-08-28)
PROC: B24BZZ4 Ultrasonography of Heart with Aorta, Transesophageal (ICD-10-PCS; 2024-08-28)
DX: I25.118 Atherosclerotic heart disease of native coronary artery with other forms of angina pectoris (principal); J96.02 Acute respiratory failure with hypercapnia; E87.29 Other acidosis; D62 Acute posthemorrhagic anemia; E87.1 Hypo-osmolality and hyponatremia; J98.11 Atelectasis; E66.01 Morbid (severe) obesity due to excess calories; E78.5 Hyperlipidemia, unspecified; G47.33 Obstructive sleep apnea (adult) (pediatric); I10 Essential (primary) hypertension; E11.65 Type 2 diabetes mellitus with hyperglycemia; E83.51 Hypocalcemia; E87.70 Fluid overload, unspecified; E86.1 Hypovolemia; I34.0 Nonrheumatic mitral (valve) insufficiency; E66.812 Obesity, class 2; Z68.36 Body mass index [BMI] 36.0-36.9, adult; Z79.82 Long term (current) use of aspirin; Z79.84 Long term (current) use of oral hypoglycemic drugs; Z79.899 Other long term (current) drug therapy; Z82.49 Family history of ischemic heart disease and other diseases of the circulatory system; Z85.038 Personal history of other malignant neoplasm of large intestine; Z90.49 Acquired absence of other specified parts of digestive tract
CPT/HCPCS: 36415; 71045; 71046; 80048; 80053; 81003; 81015; 82248; 82330; 82565; 82805; 82947; 82962; 83036; 83735; 84132; 84302; 84520; 85014; 85018; 85025; 85027; 85049; 85610; 85730; 86850; 86900; 86901; 86920; 87070; 93005; 93306; 93312; 93320; 93325; 93880; 93923; 93930; 94002; J2916